=== PATIENT | male | born 1940 | race Caucasian/White ===

== ENCOUNTER 2017-02-13 06:20 | Day surgery (SDC) | payer OTHER ==
[~2017-02-13] VITALS: Ht 180.3 cm; Wt 98.1 kg
[2017-02-13] MEDS ORDERED: IOHEXOL 350 MG/ML 100 ML BTL (for Cath Lab) OTHER ONE (06:21)
[2017-02-13] MEDS ORDERED: IOHEXOL 350 MG/ML 50 ML BTL (for Cath Lab) OTHER ONE (06:21)
[2017-02-13] MEDS ORDERED: NS 1000P @30 MLS/HR (KVO) IV SCH (07:00)
[2017-02-13] MEDS ORDERED: KETOC2%T TOPICAL (07:24)
[2017-02-13] MEDS ORDERED: HYDR200T3 PO (07:24)
[2017-02-13] MEDS ORDERED: TAMS0.4C4 PO (07:24)
[2017-02-13] MEDS ORDERED: BENA5TAB PO (07:24)
[2017-02-13] MEDS ORDERED: ASPI81TA23 PO (07:24)
[2017-02-13] MEDS ORDERED: MULT-65 PO (07:24)
[2017-02-13] MEDS ORDERED: OMEP20TA93 PO (07:24)
[2017-02-13 07:27] VITALS: BP 107/72; PULSE 87; RESP 16; TEMP 98.1; O2SAT 96
[2017-02-13 07:29] LABS: AUTOMATED NEUTROPHIL # 2.3 TH/MM3 (1.8-7.7); BASOPHIL % 0.4 % (0.0-2.0); EOSINOPHIL # 0.1 TH/MM3 (0-0.4); EOSINOPHIL % 1.4 % (0.0-4.0); HEMATOCRIT 39.9 % (39.0-51.0); LYMPH % 31.8 % (9.0-44.0); LYMPHOCYTE # 1.4 TH/MM3 (1.0-4.8); MEAN CELL VOLUME 99.7 FL (80.0-100.0); MEAN CORPUSCULAR HEMOGLOBIN 35.5 PG (27.0-34.0); MEAN CORPUSCULAR HGB CONC 35.6 % (32.0-36.0); MONO % 13.6 % (0.0-8.0); NEUT % 52.8 % (16.0-70.0); PLATELET COUNT 89 TH/MM3 (150-450); RED BLOOD COUNT 4.01 MIL/MM3 (4.50-5.90); RED CELL DISTRIBUTION WIDTH 12.7 % (11.6-17.2); WHITE BLOOD COUNT 4.4 TH/MM3 (4.0-11.0)
[2017-02-13 07:36] LABS: APTT (PATIENT) 28.9 SEC (24.3-30.1); INTERNATIONAL NORMALIZED RATIO 1.1 RATIO; PROTHROMBIN TIME - PATIENT 11.9 SEC (9.8-11.6)
[2017-02-13 07:40] LABS: HEMO FLAGS AUTO DIFF
[2017-02-13 07:42] LABS: BICARBONATE 24.6 MEQ/L (21.0-32.0)
[2017-02-13 08:09] LABS: PLATELET ESTIMATE SMEAR LOW (NORMAL); PLATELET MORPHOLOGY NORMAL (NORMAL); SCAN/DIFF FINAL DIFF MANUAL
[2017-02-13] MEDS ORDERED: HEPARIN-NS/PF INJ 1,000 ML ONE ×2 (08:29)
[2017-02-13] MEDS ORDERED: VERAPAMIL HCL 5 MG/2 ML VIAL ONE (08:38)
[2017-02-13] MEDS ORDERED: HEPARIN SODIUM - IV 10,000 UNITS/10 ML VIAL ONE (08:39)
[2017-02-13] MEDS ORDERED: MIDAZOLAM HCL 2 MG/2 ML VIAL ONE (08:46)
[2017-02-13 08:56] LABS: BLOOD, URINE TRACE (NEG); COMMENT (UR) CATH-CULT NOT IND; CULTURE IF INDICATED CATH CULTURE NOT IND; GLUCOSE,URINE NEG (NEG); KETONE, URINE NEG (NEG); MUCUS URINE FEW /lpf (OCC); NITRITE,URINE NEG (NEG); PH, URINE 5.5 (5.0-8.5); SQUAMOUS EPITHELIAL CELL URINE <1 /hpf (0-5); URINE COLOR YELLOW (YELLW/STRAW)
[2017-02-13] MEDS ORDERED: HEPARIN-NS/PF INJ 500 ML ONE (10:08)
--- NOTE | 2017-02-13 10:28 | CATHPROC ---
Power Fingerprinting HIS Report Study Information Study Number Admission Scheduled Start Study Start [id number] Feb 13 2017 6:20AM 02/13/2017 Feb 13 2017 8:24AM [place] Service Cardiac Catheterization Admit Source Facility Department Other [facility] - General Magistrate Physician and Clinical Staff Initial Arya Abdi Foreign Language Instructor Spike Remy RN Recorder Melissa Parker,RT(R) Scrub Golden Willett RCIS(BS) Procedures Performed Procedure Location (Site) Vessel Name Coronary Angiograms LCA Left Coronary Coronary Angiograms RCA Right Coronary L Heart Cath Wire insertion Brach. Vein (right) Brachial Vein Wire insertion Radial (right) Radial Art. Equipment Time Tracer Lathe Set Up Operator Description Size Mfg Part Number Used/Scraped [id number] 09:03 HOBSON PASCUAL SWAN CAR CATHETER FR 7 Used *[id number] TRANSDUCER, TRUWAVE [id number] 09:03 HOBSON PASCUAL * Used W/STOCKCOCK *[id number] TRANSDUCER, TRUWAVE [id number] 09:03 HOBSON PASCUAL * Used W/STOCKCOCK *[id number] WIRE, GUIDE AMPLATZ STIFF [id number] 10:02 COOK/PACER 3MMJ Used 180CM *[id number] 534-576T *[id number] 534-545T *[id number] 534-548T *[id number] 534-518T *[id number] 534-521T *[id number] 09:03 [employer] INDUSTRIES PACK, CCL CUSTOM * Used *[id number] BAND, RADIAL COMPRESSION TR [id number] 10:13 [employer] MEDICAL 29CM Used LARGE 29 *[id number] 09:03 [employer] MEDICAL SHEATH, FR5.5 PRELUDE 11CM FR 5 [id number] Used [id number] 09:03 [employer]-Bound WIRE, 3MMJ .035 180CM 180CM Used *[id number] 09:03 NAMIC MANIFOLD, 2 PORT * Used *[id number] 09:03 NAMIC MANIFOLD, 4 PORT * Used *[id number] 09:03 NYCOMED OMNIPAQUE, 350 MG, 150ML 150ML [id number] Used 10:18 [employer]COMED OMNIPAQUE, 350 MG, 150ML 150ML [id number] Used [id number] 09:03 [employer] MEDICAL BLANKET,WARM AIR CCL * Used *[id number] SHEATH, FR6 TRANSRADIAL RM*[id number] 09:04 TERUM[employer] MEDICAL FR 6 Used SLENDER 10CM *[id number] SHEATH, FR6 TRANSRADIAL RM*[id number] 09:04 [employer] MEDICAL FR 6 Used SLENDER 10CM *[id number] 09:03 [employer]UM[employer] MEDICAL SHEATH, FR7 TERUMO (10CM) FR 7 Used *[id number] Equipment Model, Serial, Lot Number and Expiration Data Description Model Number Serial Number Lot Number Expiration Date WIRE, GUIDE AMPLATZ STIFF [id number] 11-30-2021 180CM History: Current Medications Medication Dosage/Unit Route Frequency Last Date/Time Taken ASA MVI Prilosec History: Allergies Allergy Reaction No Known Allergies History: Risk Factors Family History of Hypertension Dyslipidemia Previous [place] Previous Heart Failure Premature CAD Yes No No No No Prior Valve Prior PCI Prior CABG Surgery No No No Cerebrovascular Peripheral Artery Chronic Lung On Dialysis Diabetes Disease Disease Disease No No No No No History: Symptoms/Diagnosis Selection Items SOB History: Stress Tests Stress or Imaging Studies Performed No History: Other Disease Selection Items HTN History: Other Current Smoker Method Years Used Yes Cigarettes 10 Labs Hgb (g/dl) Hct (%) RBC (MIL/MM3) WBC (l/cumm) Platelets (thousands) 11.60-17.00 35.00-51.00 4.00-5.90 4.00-11.00 150.00-450.00 14.2 39.9 4 4.4 89 Glucose (mg/dl) BUN (mg/dl) Creatinine (mg/dl) BUN:Creatinine (1:x) 74.00-106.00 7.00-18.00 0.50-1.30 10.00-20.00 102 10 0.7 14.3 Na (meq/l) K (meq/l) Cl (meq/l) CO2 (mmol/L) Ca (mg/dl) 136.00-145.00 3.50-5.10 98.00-107.00 21.00-32.00 8.50-10.10 138 4 105 24.6 8 PT (sec) PTT (sec) INR (PTT:PT) 9.80-11.60 24.30-30.10 0.90-1.10 11.9 28.9 1.1 CPK-MB (ng/ML) 0.50-3.60 Not Drawn Medication Medication Total Dose (Bolus/Oral) Medication Total Dosage/Unit 1% XYLOCAINE 40 mL FENTANYL 25 mcg RADIAL COCKTAIL 5 mL (Bolus) Medications (Bolus/Oral) Medication Time Given Dosage/Unit Administered By Reason 1% XYLOCAINE 02/13/2017 8:59:10 AM 20 mL Arya Le 20 mL 1% XYLOCAINE given in lab by Arya Le in Right Radial via Subcutaneous. FENTANYL 02/13/2017 9:00:20 AM 25 mcg Spike Remy 25 mcg FENTANYL given in lab by Spike Remy RN via Peripheral IV. Ntg 200mcg Verapamil 2.5mg Heparin RADIAL COCKTAIL 02/13/2017 9:04:31 AM 5 mL (Bolus) Arya Le 3000U 5 mL (Bolus) RADIAL COCKTAIL given in lab by Arya Le in Right Radial via Radial. Using [S olution Name]. Reason: Ntg 200mcg Verapamil 2.5mg Heparin 3000U. 3900 units heparin 1% XYLOCAINE 02/13/2017 9:06:25 AM 20 mL Arya Le 20 mL 1% XYLOCAINE given in lab by Arya Le in Right Antecubital via Subcutaneous. Medication (Drip) Medication Time Given Dosage/Unit Concentration/Unit Diluent (ml) Solution IV Bolus 02/13/2017 9:09:08 AM 250 mL (Bolus) NaCl .9 250 mL (Bolus) IV Bolus given in lab by Spike Remy RN via Peripheral IV. Using NaCl .9. IV Solutions 02/13/2017 8:24:09 AM 0 mL (IV) 500 NaCl .9 Patient arrived on IV Solutions in Left Antecubital via Peripheral IV. Pump/Drip Flow = 20 ml/hr jennifer g NaCl .9. Ordered by Arya Le. Initial Case Assessment Cardiovascular HR Rhythm NIBP Chest Pain 77 reg 115/72 0 Edema Present Skin color Skin None Normal Warm Dry Circulatory - Right Pulses Dorsalis Pedis Femoral Radial 3 3 2 Scale (0,1,2,3,4,d) Circulatory - Left Pulses Dorsalis Pedis Femoral Radial 3 3 Scale (0,1,2,3,4,d) Circulatory - Lower Extremities Color Lower Right Color Lower Left Normal Normal Neurological State Oriented to time-place- Alert Moves all extremities person Respiration - General Respiration Rate SpO2 (%) (B/min) 16 95 Chronological Log Time Study Chronological Log 8:23:35 Patient arrived via Bed. 8:23:35 Patient Name, D.O.B, / Armband Verified By R.N. 8:23:36 Consent signed by the physician and the patient and verified by the General Magistrate staff. 8:23:37 Pre-op and post- op instructions given; patient acknowledges understanding of instructions. 8:23:38 Verbal Stimulation=2 Physical Stimulation=2 Airway=2 Respiration=2 TOTAL=8. (0=absent, 1=li mited, 2=present) 8:23:48 Allens test performed on the right radial and ulnar artery. 8:23:54 Patient has been NPO for More than 6Hrs. 8:23:55 Skin Breakdown-psoriasis patches on rt elbow and bilateral knees 8:24:04 Patient Warmer Placed on the Table. 8:24:08 A # 20 IV was noted in the Antecubital (left). Grade = 0 Patient arrived on IV Solutions in Left Antecubital via Peripheral IV. Pump/Drip Flow = 20 ml/h r using NaCl .9. Ordered 8:24:09 by Arya Le 8:24:10 History and physical on the chart or being dictated. Assessment: Initial Case, HR=77 BPM, Rhythm=reg, SDZE=330/72 mmhg, Chest Pain=0, Edema=None, Col or=Normal, Skin = Warm, Dry Right Pulses: Leobardo Ped=3, Femoral=3, Radial=2 Left Pulses: Leobardo Ped=3, Femoral=3 8:24:10 Lower Right Extremities: Color=Normal Lower Left Extremities: Color=Normal Neurological: State=Alert, Ox3, VELEZ Respiration: Resp=16 B/min, SpO2=95 % 8:24:50 MD arrived. Vitals capture started with the following parameters, Patient=Adult, Interval=5 min, Initial Pre qzdjr=154 mmHg, 8:32:51 Deflation Rate=5 mmHg, Cuff placed on Left Arm 8:33:34 HR=78 bpm, KMQM=594/69 mmhg, SpO2=95 %, Resp=15 B/min, Pain=0, Desiree=10, Rivera=3 8:36:57 Reference ECG taken 8:38:29 HR=76 bpm, WEIV=759/72 mmhg, SpO2=96.0 %, Resp=8 B/min, Pain=0, Desiree=10, Rivera=2 8:43:30 HR=79 bpm, OORD=533/76 mmhg, SpO2=95 %, Resp=15 B/min, Pain=0, Desiree=10, Rivera=2 8:48:29 HR=83 bpm, SXCJ=774/78 mmhg, SpO2=95.0 %, Resp=15 B/min, Pain=0, Desiree=10, Rivera=2 8:52:45 Pressure channel 1 zeroed. 8:53:34 HR=77 bpm, SGFY=141/74 mmhg, SpO2=96.0 %, Resp=15 B/min, Pain=0, Desiree=10, Rivera=2 Time Out. Correct patient, correct procedure, correct physician, power injector not loaded with contrast with surgical 8:57:48 team present. Time Out Concurred by MD and individual staff in procedure. Time Out #2 - Consents verified, patient in correct position, all results are labled and display ed, safety precautions 8:58:00 taken. Time Out concurred by MD, individual staff and DIRECTOR PERSONAL in procedure. 8:58:08 Presedation re-assessment performed by General Magistrate RN. 8:58:11 Contrast Scanned 8:58:15 Case Start 8:58:29 HR=79 bpm, DXUW=933/76 mmhg, SpO2=96.0 %, Resp=13 B/min, Pain=0, Desiree=10, Rivera=2 8:59:04 Verbal Stimulation=2 Physical Stimulation=2 Airway=2 Respiration=2 TOTAL=8. (0=absent, 1=quiroz ited, 2=present) 8:59:10 20 mL 1% XYLOCAINE given in lab by Arya Le in Right Radial via Subcutaneous. 9:00:20 25 mcg FENTANYL given in lab by Spike Remy, RN via Peripheral IV. Access site was right Radial Artery with ultrasound device 9:01:54 9:02:17 A wire was inserted via Radial (right). A SHEATH, FR6 TRANSRADIAL SLENDER 10CM FR 6 was advanced into the Radial (right) using the Zenobia grijalva 9:02:33 technique. 9:03:30 HR=84 bpm, JDKQ=019/79 mmhg, SpO2=95.0 %, Resp=18 B/min, Pain=0, Desiree=10, Rivera=2 5 mL (Bolus) RADIAL COCKTAIL given in lab by Arya Le in Right Radial via Radial. Yo felix [Solution Name]. 9:04:31 Reason: Ntg 200mcg Verapamil 2.5mg Heparin 3000U. 3900 units heparin 9:06:25 20 mL 1% XYLOCAINE given in lab by Arya Le in Right Antecubital via Subcutaneous . 9:08:32 HR=79 bpm, NIBP=89/53 mmhg, SpO2=91 %, Resp=11 B/min, Pain=0, Desiree=10, Rivera=2 9:09:08 250 mL (Bolus) IV Bolus given in lab by Spike Remy, RN via Peripheral IV. Using NaCl .9. 9:12:32 NIBP STAT measurement started. 9:13:08 HR=71 bpm, NIBP=86/56 mmhg, SpO2=91 %, Resp=15 B/min, Pain=0, Desiree=10, Rivera=2 9:17:02 NIBP STAT measurement started. 9:17:28 Access site was Right Brachial Vein. 9:17:34 HR=78 bpm, TRDW=830/68 mmhg, SpO2=91.0 %, Resp=17 B/min, Pain=0, Desiree=10, Rviera=2 9:17:43 A wire was inserted via Brach. Vein (right). A SHEATH, FR6 TRANSRADIAL SLENDER 10CM FR 6 was advanced into the Brach. Vein (right) using the Percutaneous 9:17:57 technique. 9:18:37 A SWAN CAR CATHETER FR 7 was inserted via Brach. Vein (right) 9:18:38 HR=76 bpm, JUEO=487/63 mmhg, SpO2=92 %, Resp=17 B/min, Pain=0, Desiree=10, Rivera=2 Recorded Pressure: PCW, HR=79, Condition=Condition 1 9:21:47 (Pulmonary Capillary Wedge) PCW 19/17/14 9:23:26 Saturation: Site=Ao (Aorta) , O2=94.3 %, Hgb=14.2 gm/dl, Condition=Condition 1. Used in calc ulation. 9:23:33 HR=77 bpm, NIBP=99/66 mmhg, SpO2=93.0 %, Resp=8 B/min, Desiree=10 9:25:12 Saturation: Site=PA (Pulmonary Artery) , O2=76.7 %, Hgb=14.2 gm/dl, Condition=Condition 1. U sed in calculation. Recorded Pressure: MPA, HR=78, Condition=Condition 1 9:26:36 (Main Pulmonary Artery) MPA Recorded Pressure: RV, HR=78, Condition=Condition 1 9:27:15 (Right Ventricle) RV Recorded Pressure: RA, HR=71, Condition=Condition 1 9:27:45 (Right Atrium) RA 9:28:21 [place] Car Catheter Removed 9:28:32 HR=78 bpm, BKFY=438/69 mmhg, SpO2=97.0 %, Resp=8 B/min, Pain=0, Desiree=10, Rivera=2 A JR 4.0 INFINITI CATHETER FR 5 was advanced over a wire. OMNIPAQUE, 350 MG, 150ML 150ML was us ed for 9:29:08 injections. Recorded Pressure: Ao, HR=81, Condition=Condition 1 9:31:30 (Aorta) Ao 93/57/73 9:33:31 HR=80 bpm, UDOE=481/71 mmhg, SpO2=97.0 %, Resp=22 B/min, Pain=0, Desiree=10, Rivera=2 After removing the current catheter a JL 3.5 INFINITI CATHETER FR 5 was advanced over a WIRE, 3 MMJ .035 180CM 9:35:46 180CM. 9:38:36 HR=79 bpm, NIBP=97/58 mmhg, SpO2=95 %, Resp=13 B/min, Pain=0, Desiree=10, Rivera=2 9:39:19 The LCA was injected and visualized at various angles. OMNIPAQUE, 350 MG, 150ML 150ML used. After removing the current catheter a 3DRC INFINITI CATHETER FR 5 was advanced over a WIRE, 3MM J .035 180CM 9:43:28 180CM. 9:43:33 GP=828 bpm, GQCP=321/61 mmhg, SpO2=95 %, Resp=8 B/min, Pain=0, Desiree=10, Rivera=2 9:48:32 HR=85 bpm, ZIKR=363/73 mmhg, SpO2=95 %, Resp=17 B/min, Pain=0, Desiree=10, Rivera=2 9:48:48 A WIRE, 3MMJ .035 180CM 180CM was inserted via Radial (right). After removing the current catheter a AR MOD INFINITI CATHETER FR 5 was advanced over a WIRE, 3 MMJ .035 180CM 9:52:48 180CM. 9:53:35 HR=80 bpm, IHGX=524/65 mmhg, SpO2=95.0 %, Resp=15 B/min, Pain=0, Desiree=10, Rivera=2 9:57:56 The RCA was injected and visualized at various angles. OMNIPAQUE, 350 MG, 150ML 150ML used. 9:58:36 HR=82 bpm, QXXA=529/73 mmhg, SpO2=96.0 %, Resp=16 B/min, Pain=0, Desiree=10, Rivera=2 After removing the current catheter a AL 1 INFINITI CATHETER FR 5 was advanced over a WIRE, 3MM J .035 180CM 9:59:40 180CM. 10:03:35 HR=81 bpm, GKBX=705/75 mmhg, SpO2=97.0 %, Resp=20 B/min, Pain=0, Desiree=10, Rivera=2 10:05:11 The RCA was injected and visualized at various angles. OMNIPAQUE, 350 MG, 150ML 150ML used . 10:08:36 HR=83 bpm, ZPMN=929/66 mmhg, SpO2=97.0 %, Resp=8 B/min, Pain=0, Desiree=10, Rivera=2 10:10:26 Catheter was removed 10:10:32 Case End Radial Compression Device Used. 97 mLs of air placed in BAND, RADIAL COMPRESSION TR LARGE 29 29 CM. Affected 10:12:36 hand 18 % O2 saturation. 10:13:35 HR=84 bpm, BAMC=126/75 mmhg, SpO2=97.0 %, Resp=18 B/min, Pain=0, Desiree=10, Rivera=2 10:15:10 ACT (Normal Range 90-180) = 188 10:18:07 Sterile dressing applied to site 10:18:08 No case complications noted. 10:18:11 Cine recording checked. 10:18:13 Bedside Report will be given. 10:18:16 Contrast Scanned 10:18:33 A Left Heart Cath was performed. 10:18:36 HR=83 bpm, QTZK=162/76 mmhg, SpO2=97.0 %, Resp=16 B/min, Pain=0, Desiree=10, Rivera=2 10:23:39 HR=97 bpm, MLZG=511/67 mmhg, SpO2=96.0 %, Resp=18 B/min, Pain=0, Desiree=10, Rivera=2 End Study - Contrast Media Used In Study Contrast Total Opened (mL) Total Used (mL) Total Wasted (mL) Omnipaque 110 110 0 End Study - Maximum Contrast Load Max Contrast Load (mL) 700.6 End Study - Radiation Exposure Fluoro Time (minutes) 18.9 End Study - Sheaths Sheaths Pulled By Sheath Hold Time (min) Golden Willett End Study - Patient Disposition Complications Transferred To Interventional Outcome No Outpatient Bed No attempt made
[2017-02-13] MEDS ORDERED: MISC INFORMATION XX ONE (10:30)
--- NOTE | 2017-02-13 11:56 | RADRPT ---
EXAM DATE/TIME: 02/13/2017 11:16 [facility] COMPARISON: No previous studies available for comparison. INDICATIONS : Preop cardiac surgery. MEDICAL HISTORY : Hypertension. Gastroesophageal reflux disease. Cardiac valve disease. SURGICAL HISTORY : Cardiac cath. ENCOUNTER: Initial ACUITY: 1 day PAIN SCORE: 0/10 LOCATION: Bilateral neck PEAK SYSTOLIC VELOCITIES (cm/sec): ICA/CCA RATIO: Right: 1.0 Left: 0.9 ICA: Right: 93 Left: 98 CCA: Right: 90 Left: 104 ECA: Right: 97 Left: 128 VERTEBRAL: Right: 29 antegrade Left: 80 antegrade Elevated flow velocities and ICA/CCA ratios have been found to correlate with increased degrees of vessel stenosis, calculated as percentage of diameter relative to a normal segment of distal ICA/CCA FINDINGS: RIGHT CAROTID: Mild calcified plaque in the carotid wall extending to the origin of the ICA. No significant stenosis is visualized. The waveforms are within normal limits. LEFT CAROTID: Mild calcified plaque in the carotid wall extending to the origin of the ICA. No significant stenosis is visualized. The waveforms are within normal limits. VERTEBRAL ARTERIES: Antegrade flow is seen in both vertebral arteries. MISCELLANEOUS: None. CONCLUSION: 1. Mild bilateral carotid bulb calcified plaque extending to the internal carotid artery origins with out significant flow-limiting stenosis. 2. Antegrade vertebral artery flow bilaterally. Mich Bai MD on February 13, 2017 at 11:52 Board Certified Radiologist. This report was verified electronically.
--- NOTE | 2017-02-13 11:57 | RADRPT ---
EXAM DATE/TIME: 02/13/2017 10:59 [facility] COMPARISON: No previous studies available for comparison. INDICATIONS : Pre-Op cardiac surgery. MEDICAL HISTORY : Hypertension. Gastroesophageal reflux disease. Cardiac valve disease. SURGICAL HISTORY : Cardiac catheterization. ENCOUNTER: Initial ACUITY: 1 day PAIN SCORE: 0/10 LOCATION: Bilateral leg. GREATER SAPHENOUS VEIN THIGH: PROXIMAL: Right 5 mm Left 6 mm MID: Right 3 mm Left 4 mm DISTAL: Right 3 mm Left 4 mm CALF: PROXIMAL: Right 3 mm Left 3 mm MID: Right 2 mm Left 2 mm DISTAL: Right 2 mm Left 3 mm FINDINGS: The venous system of the lower extremities are patent by color Doppler imaging. Measurements of the leg veins (in mm) are listed above. CONCLUSION: 1. Patent bilateral saphenous veins. 2. Lower extremity venous mapping, as above. Mich Bai MD on February 13, 2017 at 11:54 Board Certified Radiologist. This report was verified electronically.
--- NOTE | 2017-02-13 11:59 | RADRPT ---
EXAM DATE/TIME: 02/13/2017 10:51 [facility] COMPARISON: No previous studies available for comparison. INDICATIONS : Pre-Op cardiac surgery. MEDICAL HISTORY : Hypertension. Gastroesophageal reflux disease. Cardiac valve disease. SURGICAL HISTORY : Cardiac catheterization. ENCOUNTER: Initial ACUITY: 1 day PAIN SCORE: 0/10 LOCATION: Bilateral leg. TECHNIQUE: Venous ultrasound of the left and right leg was performed from the inguinal ligament to the proximal calf. Real-time, color Doppler and spectral tracing, compression and augmentation techniques were us ed. FINDINGS: RIGHT LEG: There is normal compressibility of the deep venous system from the inguinal region to the proximal ca lf. No echogenic clot is seen in the lumen of the common femoral, femoral, popliteal, and posterior tibial veins. There is a normal response of the venous system to proximal and distal augmentation an d respiration. LEFT LEG: There is normal compressibility of the deep venous system from the inguinal region to the proximal ca lf. No echogenic clot is seen in the lumen of the common femoral, femoral, popliteal, and posterior tibial veins. There is a normal response of the venous system to proximal and distal augmentation an d respiration. CONCLUSION: Normal examination. Mack Block MD on February 13, 2017 at 11:56 Board Certified Radiologist. This report was verified electronically.
--- NOTE | 2017-02-13 15:15 | EKG ---
Date Performed: 02/13/2017 Time Performed: 07:24:44 PTAGE: 77 years EKG: Sinus rhythm with PVC(s) with PAC(s). Leftward axis Inferior T wave changes are nonspecific Borderline ECG NO PREVIOUS TRACING DOCTOR: Tammi Phoenix Interpretating Date/Time 02/13/2017 15:12:46
[2017-02-13 15:51] LABS: HEMOGLOBIN A1b 1.3 %; HEMOGLOBIN Ao 86.5 %; HEMOGLOBIN P3 3.5 %
--- NOTE | 2017-02-13 16:00 | RADRPT ---
EXAM DATE/TIME: 02/13/2017 15:40 [facility] COMPARISON: No previous studies available for comparison. INDICATIONS : Evaluate for pneumonia, pneumothorax, or communicable disease. Pre op CABG. MEDICAL HISTORY : None. SURGICAL HISTORY : None. ENCOUNTER: Initial ACUITY: 1 day PAIN SCORE: 0/10 LOCATION: Bilateral chest FINDINGS: There are mild chronic appearing interstitial changes. The heart is at the upper limits of normal in size. The mediastinal contours are within normal limits. There degenerative changes in the spine. CONCLUSION: 1. Chronic appearing interstitial changes. No acute abnormality. Brian Parsons MD on February 13, 2017 at 15:55 Board Certified Radiologist. This report was verified electronically.
--- NOTE | 2017-02-13 16:18 | RADRPT ---
EXAM DATE/TIME: 02/13/2017 15:50 [facility] COMPARISON: No previous studies available for comparison. INDICATIONS : Preop for aortic valve replacement. RADIATION DOSE: 7.49 CTDIvol (mGy) MEDICAL HISTORY : Cardiovascular disease. Hypertension. GERD. SURGICAL HISTORY : None. ENCOUNTER: Initial ACUITY: 1 day PAIN SCALE: 1/10 LOCATION: Bilateral chest TECHNIQUE: Volumetric scanning of the chest was performed. Using automated exposure control and adjustment of t he mA and/or kV according to patient size, radiation dose was kept as low as reasonably achievable to obtain optimal diagnostic quality images. DICOM format image data is available electronically for r eview and comparison. Follow-up recommendations for detected pulmonary nodules are based at a minimum on nodule size and pa tient risk factors according to Fleischner Society Guidelines. FINDINGS: LUNGS: There is no consolidation or pneumothorax. No concerning pulmonary nodule is visualized. PLEURAE: There is no pleural thickening or pleural effusion. MEDIASTINUM: Extensive aortic and mitral valve calcifications. Moderate bilateral cornea artery calcifications. He art is normal in size without significant pericardial effusion. The aortic root and ascending thoraci c aorta are mildly aneurysmal measuring up to 4 cm in axial dimension. 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 Aortic arch is normal in caliber. Descending thoracic aorta is normal in caliber with minimal scattered calcified plaque. AXILLAE: Within normal limits. No lymphadenopathy. MUSCULOSKELETAL: Within normal limits for patient age. MISCELLANEOUS: Visualized portions of the upper abdomen demonstrate a nodular hepatic contour which may reflect cirr hosis. Otherwise, no significant abnormality. CONCLUSION: 1. Extensive aortic and mitral valve calcifications with mildly aneurysmal aortic root and ascending thoracic aorta measuring up to 4 cm in axial dimension. 2. Moderate coronary artery calcifications. 3. No significant focal pleural or parenchymal abnormality. 4. Visualized portions of the upper abdomen demonstrate a nodular cirrhotic appearing liver. Clinical correlation is recommended. Mich Bai MD on February 13, 2017 at 16:10 Board Certified Radiologist. This report was verified electronically.
--- NOTE | 2017-02-13 17:38 | PD.CAR.PN ---
CVT Progress Note Subjective/Hospital Course: sts data discussed with pt RISK SCORES About the STS Risk Calculator Procedure: AV Replacement + CAB Risk of Mortality: 3.262% Morbidity or Mortality: 20.764% Long Length of Stay: 11.317% Short Length of Stay: 27.231% Permanent Stroke: 1.54% Prolonged Ventilation: 13.865% DSW Infection: 0.563% Renal Failure: 5.773% Reoperation: 9.878% Objective: Vital Signs Date Time Temp Pulse Resp B/P (MAP) Pulse Ox O2 Delivery O2 Flow Rate FiO2 02/13/17 10:35 97 Room Air 02/13/17 07:27 98.1 87 16 107/72 (84) 96 Labs: Laboratory Tests Test 02/13/17 07:00 02/13/17 07:05 Urine Color YELLOW (YELLW/STRAW) Urine Turbidity CLEAR (CLEAR) Urine pH 5.5 (5.0-8.5) Urine Specific [place] 1.015 (1.002-1.035) Urine Protein TRACE mg/dL (NEG-TRACE) Urine Glucose (UA) NEG mg/dL (NEG) Urine Ketones NEG mg/dL (NEG) Urine Occult Blood TRACE (NEG) Urine Nitrite NEG (NEG) Urine Bilirubin NEG (NEG) Urine Urobilinogen LESS THAN 2.0 MG/DL (LESS Urine Leukocyte Esterase NEG (NEG) Urine RBC 2 /hpf (0-3) Urine WBC 1 /hpf (0-5) Urine Squamous Epithelial Cells <1 /hpf (0-5) Urine Mucus FEW /lpf (OCC) Microscopic Urinalysis Comment CATH-CULT NOT IND Nasal Screen MRSA (PCR) MRSA NOT DETECTED (NOT White Blood Count 4.4 TH/MM3 (4.0-11.0) Red Blood Count 4.01 MIL/MM3 (4.50-5.90) Hemoglobin 14.2 GM/DL (13.0-17.0) Hematocrit 39.9 % (39.0-51.0) Mean Corpuscular Volume 99.7 FL (80.0-100.0) Mean Corpuscular Hemoglobin 35.5 PG (27.0-34.0) Mean Corpuscular Hemoglobin Concent 35.6 % (32.0-36.0) Red Cell Distribution Width 12.7 % (11.6-17.2) Platelet Count 89 TH/MM3 (150-450) Mean Platelet Volume 7.3 FL (7.0-11.0) Neutrophils (%) (Auto) 52.8 % (16.0-70.0) Lymphocytes (%) (Auto) 31.8 % (9.0-44.0) Monocytes (%) (Auto) 13.6 % (0.0-8.0) Eosinophils (%) (Auto) 1.4 % (0.0-4.0) Basophils (%) (Auto) 0.4 % (0.0-2.0) Neutrophils # (Auto) 2.3 TH/MM3 (1.8-7.7) Lymphocytes # (Auto) 1.4 TH/MM3 (1.0-4.8) Monocytes # (Auto) 0.6 TH/MM3 (0-0.9) Eosinophils # (Auto) 0.1 TH/MM3 (0-0.4) Basophils # (Auto) 0.0 TH/MM3 (0-0.2) CBC Comment AUTO DIFF Differential Comment FINAL DIFF MANUAL Platelet Estimate LOW (NORMAL) Platelet Morphology Comment NORMAL (NORMAL) Prothrombin Time 11.9 SEC (9.8-11.6) Prothromb Time International Ratio 1.1 RATIO Activated Partial Thromboplast Time 28.9 SEC (24.3-30.1) Blood Urea Nitrogen 10 MG/DL (7-18) Creatinine 0.78 MG/DL (0.60-1.30) Random Glucose 102 MG/DL (74-106) Calcium Level 8.0 MG/DL (8.5-10.1) Sodium Level 138 MEQ/L (136-145) Potassium Level 4.0 MEQ/L (3.5-5.1) Chloride Level 105 MEQ/L (98-107) Carbon Dioxide Level 24.6 MEQ/L (21.0-32.0) Anion Gap 8 MEQ/L (5-15) Estimat Glomerular Filtration Rate 97 ML/MIN (>89) Result Diagram: 02/13/1770402/13/17704 Brittany Mo Feb 13, 2017 17:38
--- NOTE | 2017-02-13 17:54 | MB ---
cc: AMA ALMODOVAR MD DATE OF CONSULTATION 02/13/17 1941. HISTORY OF PRESENT ILLNESS A 77-year-old male, patient of Dr. Pineda, also Dr. Le, Dr. Morris Alexandre who has been having some shortness of breath and fatigue for the last 4-5 months, has a history of aortic stenosis and has been followed on a regular basis by Dr. Pineda. He had a recent echocardiogram on January 09 which showed an ejection fraction of 60%, some grade 1 diastolic dysfunction. The left atrium was mildly dilated. The peak gradient for the aortic valve is 87 mmHg, mean gradient of 53, the valve consistent with severe aortic stenosis, mitral valve had some mild regurgitation and some mild tricuspid regurgitation. Right ventricular systolic pressures of 49 and also underwent heart catheterization today which showed 100% mid distal LAD and the RCA was 70% stenosed. He did right-sided heart cath which showed RA pressures of 8, PA pressure 28/14, wedge pressure 17. Cardiac output of 8, with an index of 3.7. We were consulted to evaluate for aortic valve replacement and coronary artery bypass grafting x2. PAST MEDICAL HISTORY 1. Aortic stenosis. 2. History of colon polyps 3. History of lupus and low platelets 4. Essential hypertension 5. Thrombocytopenia 6. Psoriasis 7. Psoriatic arthritis PAST SURGICAL HISTORY 1. Laparoscopic cholecystectomy. ALLERGIES No known allergies MEDICATIONS 1. Aspirin 81 mg. 2. Benazepril. 3. Hydroxychloroquine 200 mg daily 4. Omeprazole 5. Flomax 0.4 daily. FAMILY HISTORY Father from heart disease at 89. Mother from a stroke at 85. SOCIAL HISTORY The patient , two children. Retired from [employer]. He smokes a regular swish or sweet cigar and drinks two cocktails per night. REVIEW OF SYSTEMS GENERAL: No night sweats, fever, heat and cold intolerance. SKIN: No psoriasis, itching or hives. HEENT: No blurred vision, hearing loss. RESPIRATORY: Positive for shortness of breath with exertion for the past 4-5 months CARDIOVASCULAR: No chest pain. No paroxysmal nocturnal dyspnea. No orthopnea. GASTROINTESTINAL: No diarrhea, vomiting. GENITOURINARY: No burning, frequency, urgency AREA MECHANIC: No history of TIA, CVA, seizure disorder. ENDOCRINE: No diabetes, no hypothyroidism. PHYSICAL EXAMINATION VITAL SIGNS: Blood pressure 110/70, heart rate of 82, afebrile. Room air saturations 97%. GENERAL: Patient is awake, alert in no acute distress. HEENT: Normocephalic, atraumatic. Pupils equal and reactive. Oral mucosa pink, moist. NECK: Supple. No JVD. CARDIAC: Heart sounds S1-S2 slightly irregular. He has a great 3/6 systolic murmur best noted in the left sternal border. LUNGS: Clear to auscultation. No wheezes, rales or rhonchi. ABDOMEN: Soft, nontender. No masses or organomegaly. EXTREMITIES: No cyanosis, clubbing or edema. LABORATORY DATA Hemoglobin of 14, hematocrit 39, white cell count 4.4, platelet count of 89. Sodium 138, potassium 4.0, BUN of 10, creatinine 0.78, INR 1.1. Urinalysis unremarkable. MRSA nondetected. IMAGING STUDIES Carotid ultrasound - no significant flow limiting stenosis. The CT chest showed some extensive aortic, mitral valve calcification, mild aneurysmal aortic root and ascending thoracic aorta measuring 4 cm in axial dimension, some moderate coronary calcification. Chest x-ray with some chronic interstitial changes. IMPRESSION This is a very pleasant 77-year-old male with severe aortic stenosis two-vessel coronary disease. The cardiac zones have been reviewed by Dr. Ama Almodovar. PLAN for aortic valve replacement with tissue valve, coronary artery bypass grafting x2. Procedures, alternatives and risks have been discussed with the patient. He is agreeable to proceed. We will proceed on February 23. Dictated by JO-ANN Benson Ama SHAVER/ /5:06 PM /7:51 AM
--- NOTE | 2017-02-13 22:34 | MA ---
cc: ARYA CHRISTENSEN DO DATE: February 13, 2017 PROCEDURE Right heart catheterization, coronary angiogram, ultrasound-guided access, PREPROCEDURE DIAGNOSIS Severe aortic stenosis for possible AVR/TAVR. POSTPROCEDURE DIAGNOSIS Multivessel coronary artery disease, severe aortic stenosis. MEDICATIONS 1. Fentanyl 25 mcg. 2. Verapamil 2.5 mg. 3. Nitro 200 mcg. 4. Heparin 3900 units. CONTRAST 110 cc Fluoroscopy: 18.9 minutes Moderate sedation: 0-minutes ESTIMATED BLOOD LOSS 10 cc PROCEDURAL SUMMARY: Mack Desouza is a pleasant 77-year-old male who sees my partner Dr. Pineda in the office and was referred for cardiac catheterization due to severe aortic stenosis. Risks, benefits and alternatives were explained to him he consented as such. He was brought to lab and prepped in the usual sterile fashion. Right radial artery was accessed using a modified Seldinger technique with ultrasound guidance and placement of a 5/6 Gambian slender sheath. The right brachial vein was accessed using a modified Seldinger technique and ultrasound guidance and placement of a 5/6 Gambian slender sheath. Both of these were easily aspirated and flushed. A Laporte-Noam catheter was advanced to a wedge position and oxygen saturations and pressures were done in a standard fashion upon removal through the heart. Laporte-Noam catheter was removed. The JR-4 was advanced to the ascending aorta but unable to engage the right coronary artery. This was exchanged out for a JL-3.5 which was used for selective angiography of the left coronary artery system. JL-3.5 was exchanged for a 3D RC and then an AR mod and finally an AL-1 for selective angiography of the right coronary artery system. It was not felt prudent to cross the aortic valve at this time as he has a known mean gradient of 50 on echocardiogram. AL-1 was removed over a J-wire. A radial band was placed over the arteriotomy site for hemostasis. Venous sheath was sutured in place with a plan to remove once ACT values were appropriate and pressure held for hemostasis. The patient left the labor utilization superintendent cardiovascularly stable. FINDINGS Left main: Overall short vessel with no significant disease and adequate reflux. It bifurcates into an LAD and circumflex. LAD: Normal-size vessel with no significant disease throughout the proximal portion. The midportion of the LAD is subtotally occluded with minimal flow into the [id number] LAD but is overall a good size vessel. It gives off one large diagonal with no significant disease. Left circumflex: Normal size vessel with mild luminal irregularities throughout the midportion. It gives off one large obtuse marginal with no significant disease. RCA: Normal-size vessel which is overall dominant in nature. There is a 70% lesion in the proximal portion and no significant disease distally. HEMODYNAMIC RESULTS RA 9. RV 31/9. LVEDP 12. PA 28/14, mean PA 20. Wedge 17. Cardiac output 8. Cardiac index 3.7. IMPRESSION 1. Multivessel coronary artery disease. 2. Severe aortic stenosis by echocardiogram. RECOMMENDATIONS 1. Mr. Desouza was found to have aortic stenosis by echocardiogram and significant coronary artery disease with a subtotally occluded LAD as well as a significant lesion in his RCA. 2. Because of this he will be recommended CT surgery for possible AVR with CABG x2. 3. The case was discussed with Dr. Siegel who will see him in consultation. 4. As the patient is relatively asymptomatic, he will be discharged home with plans for elective procedure in the near future. Thank you for allowing me to see Mack Desouza. If there are any questions please do not hesitate to call. Arya Christensen DO SHAY/DELORIS /8:14 PM /9:37 PM
== END 2017-02-13 17:17 | disposition home or self-care (01) ==
LOC: HCAT 06:20 → HDIC 06:21 → HCAT 17:17
PROVIDERS: ATTEND Nuclear Medicine Nuclear Cardiology
DX: I35.0 Nonrheumatic aortic (valve) stenosis (principal); I25.10 Atherosclerotic heart disease of native coronary artery without angina pectoris; I10 Essential (primary) hypertension; I71.2 Thoracic aortic aneurysm, without rupture; R91.8 Other nonspecific abnormal finding of lung field; K21.9 Gastro-esophageal reflux disease without esophagitis; M32.9 Systemic lupus erythematosus, unspecified; Z79.82 Long term (current) use of aspirin; Z95.1 Presence of aortocoronary bypass graft; Z95.3 Presence of xenogenic heart valve; Z01.818 Encounter for other preprocedural examination
CPT/HCPCS: 71020; 71250; 80048; 81001; 82810; 83036; 85007; 85027; 85610; 85730; 86850; 86900; 86901; 87641; 93005; 93456; 93880; 93970; 93998; 94010; 99152; 99153; C1769; C1893; J1644; J2250; J3010; Q9967

== ENCOUNTER 2017-02-23 05:10 | Inpatient (IN) | payer OTHER, MEDICARE ==
[2017-02-23] VITALS (12 sets, daily range): BP systolic 90–131; BP diastolic 51–77; PULSE 75–116; RESP 12–18; TEMP 98–98.9; O2SAT 96–100
[~2017-02-23] VITALS: Ht 180.3 cm; Wt 108.5 kg
[~2017-02-23 05:10] MED LIST: ASPI81TA23 PO; BENA5TAB PO; HYDR200T3 PO; KETOC2%T TOPICAL; MULT-65 PO; OMEP20TA93 PO; TAMS0.4C4 PO
[2017-02-23] MEDS ORDERED: CEFAZOLIN 500 MG in NS IRR BTL 500 ML IRRIGATION SCH (05:45)
[2017-02-23] MEDS ORDERED: LACTATED RINGER'S 1000 ML IV PRN (05:45)
[2017-02-23] MEDS ORDERED: SODIUM CHLORIDE 0.9% FLUSH 10 ML FLUSH IV FLUSH PRN ×3 (05:45→13:30)
[2017-02-23] MEDS ORDERED: CHLORHEXIDINE GLUCONATE 4% SOLN 120 ML BTL TOPICAL SCH (05:45)
[2017-02-23] MEDS ORDERED: INSULIN REGULAR 100 UNITS in NS 100 ML IV PRN (05:45)
[2017-02-23] MEDS ORDERED: DEXTROSE 50% IN WATER 50 ML VIAL(D50) IV PUSH PRN ×2 (05:45→13:30)
[2017-02-23] MEDS ORDERED: POVIDONE IODINE 5% (ANTISEPSIS KIT) 4 APPLICATIONS EACH NARE PRN (05:45)
[2017-02-23] MEDS ORDERED: ceFAZolin 2 GM PREMIX 50 ML IV SCH (05:45)
[2017-02-23] MEDS ORDERED: CHLORHEXIDINE GLUCONATE 2 % 1 PACK (2 CLOTHS) TOPICAL PRN (05:45)
[2017-02-23] MEDS ORDERED: SODIUM CHLORID 0.9% 500 ML IV PRN (05:45)
[2017-02-23] MEDS ORDERED: INSULIN HUMAN REGULAR 1,000 UNITS/10 ML VIAL SQ PRN (05:45)
[2017-02-23] MEDS ORDERED: PAPAVERINE 60 MG-NITROGLYCERIN 100 MCG-DILTIAZEM 100 MG in NS 100 ML IRRIGATION SCH ×4 (05:45)
[2017-02-23] MEDS: METOPROLOL TARTRATE 25 MG TAB PO SCH ×2 (06:00→06:13)
[2017-02-23] MEDS ORDERED: ceFAZolin 2 GM PREMIX 50 ML ONE (06:16)
[2017-02-23] MEDS ORDERED: HEPARIN SODIUM - SQ 10,000 UNITS/ML VIAL ONE ×2 (06:16→07:15)
[2017-02-23] MEDS ORDERED: VANCOMYCIN HCL 1000 MG VIAL ONE (06:17)
[2017-02-23] MEDS ORDERED: CUSTODIOL HTK IRR SOLN 3,000 ML ONE (07:13)
[2017-02-23] MEDS ORDERED: POTASSIUM CHLORIDE 20 MEQ/10 ML VIAL ONE (07:13)
[2017-02-23] MEDS ORDERED: LIDOCAINE HCL 2% 100 MG/5 ML SYRINGE ONE (07:14)
[2017-02-23] MEDS ORDERED: SODIUM BICARBONATE 8.4% INJ 150 ML ONE (07:14)
[2017-02-23] MEDS ORDERED: CALCIUM CHLORIDE 10% SOLN 1 GRAM/10 ML SYR ONE (07:14)
[2017-02-23] MEDS ORDERED: MANNITOL INJ 100 ML ONE (07:15)
[2017-02-23] MEDS ORDERED: HEPARIN SODIUM - IV 10,000 UNITS/10 ML VIAL ONE (07:16)
[2017-02-23] MEDS ORDERED: ALBUMIN 25% INJ 50 ML IV ONE (07:16)
[2017-02-23] MEDS ORDERED: DEXMEDETOMIDINE HCL 200 MCG/2 ML VIAL ONE (11:10)
[2017-02-23] MEDS ORDERED: ceFAZolin INJ 1,000 MG VIAL ONE (11:12)
[2017-02-23] MEDS ORDERED: LACTATED RINGER'S 1000 ML INJ 500 ML IV PRN (13:29)
[2017-02-23] MEDS ORDERED: DOBUTamine PREMIX DRIP 250 ML IV SCH (13:29)
[2017-02-23] MEDS ORDERED: ACETAMINOPHEN 650 MG SUPP RECTAL PRN (13:30)
[2017-02-23] MEDS ORDERED: ACETAMINOPHEN 325 MG TAB PO PRN (13:30)
[2017-02-23] MEDS ORDERED: ONDANSETRON HCL 4 MG/2 ML VIAL IV PUSH PRN (13:30)
[2017-02-23] MEDS ORDERED: MAGNESIUM SULFATE INJ 2 GM in SODIUM CHLORIDE 0.9% INJ 100 ML IV PRN ×4 (13:30)
[2017-02-23] MEDS ORDERED: POTASSIUM CHLOR 20 MEQ PREMIX 100 ML IV PRN ×3 (13:30)
[2017-02-23] MEDS ORDERED: MEPERIDINE HCL 25 MG/ML VIAL IV PUSH PRN (13:30)
[2017-02-23] MEDS ORDERED: SODIUM BICARBONATE 8.4% SOLN 50 MEQ/50 ML VIAL IV PUSH PRN (13:30)
[2017-02-23] MEDS ORDERED: KETOROLAC TROMETHAMINE 30 MG/ML (IVP) VIAL IV PUSH PRN (13:30)
[2017-02-23] MEDS ORDERED: PHENYLEPHRINE INJ 40 MG in DEXTROSE 5% IN WATE 500 ML INJ 496 ML IV PRN ×2 (13:30)
[2017-02-23] MEDS ORDERED: DOPamine INJ PREMIX 500 ML IV PRN (13:30)
[2017-02-23] MEDS ORDERED: RESP: RACEPINEPHRINE 2.25% 0.5 ML NEB NEB PRN (13:30)
[2017-02-23] MEDS ORDERED: CALCIUM CHLORIDE 10% 1 GRAM/10 ML VIAL IV PUSH PRN (13:30)
[2017-02-23] MEDS ORDERED: DEXMEDETOMIDINE INJ 200 MCG in SODIUM CHLORIDE 0.9% INJ 50 ML IV PRN (13:30)
[2017-02-23] MEDS ORDERED: METOPROLOL TARTRATE 5 MG/5 ML VIAL IV PUSH PRN (13:30)
[2017-02-23] MEDS ORDERED: POTASSIUM CHLORIDE 20 MEQ CONTROLLED RELEASE TAB PO PRN ×2 (13:30)
[2017-02-23] MEDS ORDERED: hydrALAZINE HCL 20 MG/ML VIAL IV PUSH PRN (13:30)
[2017-02-23] MEDS ORDERED: ACETAMINOPHEN/HYDROcodone 325 MG/5 MG TAB PO PRN (13:30)
[2017-02-23] MEDS ORDERED: CALCIUM CHLORIDE INJ 1 GM in SODIUM CHLORIDE 0.9% INJ 100 ML IV PRN (13:30)
[2017-02-23] MEDS ORDERED: CLEVIDIPINE INJ 50 ML IV PRN (13:30)
[2017-02-23] MEDS ORDERED: RESP: ALBUTEROL 2.5 MG/IPRATROPIUM 0.5 MG NEB (PRN) NEB (13:30)
[2017-02-23] MEDS ORDERED: NITROGLYCERIN-D5W 50 MG/250 ML 250 ML IV PRN (13:30)
[2017-02-23] MEDS ORDERED: MORPHINE SULFATE 4 MG/ML INJ IV PUSH PRN (13:30)
[2017-02-23] MEDS ORDERED: Post-op Orders (for Pharmacy) OTHER ONE (13:53)
[2017-02-23] MEDS ORDERED: INSULIN REGULAR (IV INFUSION) 100 UNITS in SODIUM CHLORIDE 0.9% INJ 99 ML IV PRN (14:00)
--- NOTE | 2017-02-23 14:55 | RADRPT ---
EXAM DATE/TIME: 02/23/2017 14:12 [facility] COMPARISON: CHEST PA & LAT, February 13, 2017, 15:40. INDICATIONS : S/P CABG. MEDICAL HISTORY : None. SURGICAL HISTORY : CABG. ENCOUNTER: Initial ACUITY: 1 day PAIN SCORE: Non-responsive. LOCATION: Bilateral chest FINDINGS: Portable AP view of the chest demonstrates mildly enlarged cardiac silhouette in this patient post re cent median sternotomy. Endotracheal tube tip is at the clavicular head level measuring 4.9 cm from t he ashley and nasogastric tube distal tip is in the stomach. Right IJ line tip is in the SVC. There i s a mediastinal drain and left chest tube present. No pneumothorax is identified. There is mild bibas ilar opacity. CONCLUSION: 1. Expected postsurgical changes with mild bibasilar opacity representing atelectasis or consolidatio n. 2. Tubes and lines, as above. No pneumothorax is visualized. Mack Edmonds MD on February 23, 2017 at 14:53 Board Certified Radiologist. This report was verified electronically.
[2017-02-23] MEDS: ALBUMIN 5% INJ 250 ML IV PRN ×2 (15:08→15:32)
[2017-02-23] MEDS: ACETAMINOPHEN 1000 MG/100 ML 100 ML IV SCH ×2 (15:09→21:19)
[2017-02-23] MEDS: ceFAZolin 2 GM PREMIX 50 ML IV SCH (15:09)
--- NOTE | 2017-02-23 15:17 | PD.CAR.PN ---
CVT Progress Note Subjective/Hospital Course: 77-year-old male, patient of Dr. Pineda, also Dr. Le, Dr. Morris Alexandre who has been having some shortness of breath and fatigue for the last 4- 5 months, has a history of aortic stenosis and has been followed on a regular basis by Dr. Pineda. He had a recent echocardiogram on January 09 which showed an ejection fraction of 60%, some grade 1 diastolic dysfunction. The left atrium was mildly dilated. The peak gradient for the aortic valve is 87 mmHg, mean gradient of 53, the valve consistent with severe aortic stenosis, mitral valve had some mild regurgitation and some mild tricuspid regurgitation. Right ventricular systolic pressures of 49 and also underwent heart catheterization 02/13/17 which showed 100% mid distal LAD and the RCA was 70% stenosed. He did right-sided heart cath which showed RA pressures of 8, PA pressure 28/14, wedge pressure 17. Cardiac output of 8, with an index of 3.7. Pt was electively admitted for surgery PAST MEDICAL HISTORY: Aortic stenosis, History of colon polyps, History of lupus and low platelets, Essential hypertension, Thrombocytopenia, Psoriasis, Psoriatic arthritis surgery 02/23 Objective: Vital Signs Date Time Temp Pulse Resp B/P (MAP) Pulse Ox O2 Delivery O2 Flow Rate FiO2 02/23/17 14:00 98.8 76 12 120/58 (78) 98 02/23/17 14:00 Mechanical Ventilator 02/23/17 14:00 98 40 02/23/17 14:00 83 02/23/17 13:00 83 Brittany Mo Feb 23, 2017 15:17
--- NOTE | 2017-02-23 15:21 | HHI.FF ---
Face to Face Verification Diagnosis: (1) Thrombocytopenia (2) Lupus (3) S/P CABG x 2 (4) Coronary artery disease (5) S/P AVR (aortic valve replacement) (6) Severe aortic stenosis Home Health Nursing Order: Signs/symptoms of disease process Medication education-adverse effect Wound care and dressing changes Nursing assessment with vital signs Instructions: Heart and Vascular Surgery patients *Special attention to sternal dressing Mandatory frequency Assess and evaluation, 4 days in a row The next week 3X week 2 times a week for 4 weeks 1 time a week for 5 weeks Schedule Heart and Vascular patients for full 60 day certification period Initial visit Review Open Heart Surgery Discharge Instructions (Sternal precautions, Activity, Elastic hose, Incision care, Driving, Incentive spirometry, Smoking, [place], Work and other) Need Betadine to paint incision Medication reconciliation Importance of follow up care/ check on appointments Make calendar record temperature daily When to call [facility] nurse, review instructions, phone list Incentive Spirometry, demonstration Visit 1- Begin discharge instruction for patient family and/ or caregiver using teach back method- Signs and symptoms of infection Disease characteristics Medicines and side effects Foods and nutrition/ appetite Infection control/ hand washing/ hygiene Visit 2- Continue teaching Discharge instructions- include additional information on smoking cessation , sternal dressing (sternal vac) Visit 3- Continue teaching- Cough and deep breathing, incision monitoring. Choose my plate Visit 4- Continue teaching- Discuss limitations Discuss how they are feeling Discuss progress toward goals Remaining visits- continue teaching and monitoring PREVENA Single Use Negative Wound Therapy System Caregiver Instruction Sheet 1. A Prevena dressing system was applied to the chest incision during surgery , to promote wound healing. It works via a suction device (negative pressure wound therapy) to remove low to moderate levels of exudate (drainage) and infectious materials. We recommend that the device stay in place for up to seven days, from day of surgery. 2. Day of Surgery__/11/02 Day of Removal ___/ 3. The dressing should only be removed by a health ocular care technician. Please arrange removal of device to coincide with Home Health visit and or with Nursing staff at Rehab 4. If skin reddening or irritation of skin occurs, or excessive drainage, please notify the Cardiovascular Surgeons office at [phone]. 5. Light showering is permissible; however the pump should be disconnected and placed in safe location, where it will not get wet. The dressing should not be exposed to direct spray or submerged in water. No bath tub / shower only. Ensure the end of the tubing attached to the dressing is facing down so that water does not enter the top of the tube. 6. To remove Prevena dressing: press purple button to turn off device / remove the suction. Then disconnect the tubing from the pump. The fixation strips should be stretched away from the skin and the dressing lifted at one corner and peeled back until it has been fully removed. 7. After removal, it is ok to shower daily using liquid dial soap and clean wash cloth, rinse and pat dry, and leave incision open to air dry. For any concerns regarding Prevena dressing, and or wounds, please contact Kemi Mendoza, patient navigator at [phone] or notify the Cardiovascular Surgeons office at [phone]. Incentive spirometry Q1 hr x 10, while awake, also use acapella device hourly whole awake Sternal Breast Bone Precautions: NO pushing or pulling, ( pt must use sternal pillow to support chest with all activities and with coughing ( takes up to 3 months breast bone to heal ) Daily incision care: ok to shower daily, no tub bath. Wash all incisions with liquid dial soap, clean wash cloth to each site, rinse and pat dry. Observe for any signs of infection, such as drainage which is dark yellow, molina, green or foul smelling. Immediately report to the surgeon any drainage from the chest incision, or legs, and for any abnormal drainage from the chest tube sites. Notify surgeon if any temp >101.5 degrees F. When specialty dressing removed/ or if you do not have one, continue to shower daily as above, then rinse and pat incision dry and paint with betadine daily x 5 days. Allow steri strips to fall off if you have any. Avoid lotions, creams, salves, oils, etc. for the first month Please see attached forms for additional instructions regarding post Open Heart specialty wound vacuum dressings. RICHARD or Prevena , Dressing to be removed by Nursing staff on __/15/ F/U appointment: as per DC instructions: PCP in 2 weeks, CV surgeon 2 weeks, Addressograph Operator 3-4 weeks For any questions regarding incisions/ dressing / meds / post op care or above Symptoms, Sunday 8am-5pm Heart & Vascular Surgery Office ( Dr. Siegel & Dr. Encarnacion), After Hours / Nights (5pm -8am) Weekends and Holidays Please call [facility] ([facility]) Charge Nurse I have seen patient Mack Desouza on 02/23/17. My clinical findings support the need for the requested home health care services because: Deconditioned w/ increased weakness I certify that my clinical findings support that this patient is homebound because: Post-op weakness Brittany Mo Feb 23, 2017 15:21
[2017-02-23] MEDS ORDERED: PHENYLEPHRINE 40 MG in D5W 500 ML IV PRN (15:30)
[2017-02-23] MEDS ORDERED: TERBUTALINE INJ 1 MG/ML AMP SQ PRN (15:30)
[2017-02-23] MEDS ORDERED: DEXMEDETOMIDINE 200 MCG in NS 48 ML IV PRN (15:30)
--- NOTE | 2017-02-23 15:30 | PD.OP ---
cc: Truman Pineda MD; Belle Siegel MD Operative Report Date of Surgery: Feb 23, 2017 Preoperative Diagnosis: Postoperative Diagnosis: Procedure: 1. Coronary Artery Bypass Grafting x 2 with left internal mammary artery (NAVARRETE) to left anterior descending (LAD), reverse saphenous vein graft to the distal Right Coronary Artery (RCA) 2. Aortic Valve Replacement with 23mm Medtronic Mosaic Tissue Valve 3. Right Leg Endoscopic Vein [place] 4. Intraoperative Vein Mapping. Surgeon: Belle Siegel Lumber Straightened(s): Devon Fernando Operation and Findings: PREPROCEDURE DIAGNOSES 1. Severe Two Vessel Coronary Artery Disease. 2. Critical Aortic Valve Stenosis 3. Thrombocytopenia POSTPROCEDURE DIAGNOSES Same SURGICAL PROCEDURE 1. Coronary Artery Bypass Grafting x 2 with left internal mammary artery (NAVARRETE) to left anterior descending (LAD), reverse saphenous vein graft to the distal Right Coronary Artery (RCA) 2. Aortic Valve Replacement with 23mm Medtronic Mosaic Tissue Valve 3. Right Leg Endoscopic Vein [place] 4. Intraoperative Vein Mapping. SURGEON Belle Sieegl MD TOY ELECTRIC TRAIN REPAIRER RADHA Flores PA-C ANESTHESIA General endotracheal [employer] ASSISTANT PRINCIPAL LORENZO Mejia MD PREPARATION ChloraPrep. COUNTS Needle, sponge, and instrument counts were correct. DRAINS Two 32-Nigerien mediastinal tubes. COMPLICATIONS None. INDICATIONS FOR PROCEDURE The patient is a 77-year-old presenting with shortness of breath and known . Patient was noted to have two-vessel coronary artery disease in addition to severe . The patient is being brought to the operating room for surgical revascularization and AVR therapy. PROCEDURE Patient was brought to the operating room and placed supine on the OR table. Following the induction of adequate general endotracheal anesthesia and placement of appropriate monitoring devices, intraoperative vein mapping was performed which revealed small and marginal-caliber conduit in bilateral lower extremities. The patient was then prepped and draped in standard sterile fashion. Next, 2500 units of intravenous heparin was given. The right greater saphenous vein was harvested endoscopically. This appeared to be a small- caliber conduit. Simultaneously, a median sternotomy was performed and the left internal mammary artery dissected free off the posterior sternal table. The patient was systemically heparinized and anticoagulation monitored by serial ACT measurements. The internal mammary artery had good pulsatile flow in it and was a good-caliber conduit. The pericardium was then divided in the midline , the cradle created and targets analyzed. Then 2 pursestring sutures of 2-0 Ethibond were placed on the aorta proximal to the takeoff of the innominate artery, another was placed in the right atrial appendage. At this point, aortic and 2-stage venous cannulas were introduced and attached to the arterial and venous components of the bypass circuit respectively. Antegrade cardioplegia cannula and a left ventricular vent, through the right superior pulmonary vein, were also placed. The patient was placed on cardiopulmonary bypass and core cooling initiated to a temperature of 32 degrees centigrade. At this point, all anastomoses were performed in a pump-assisted, beating-heart fashion using the Maquet stabilizing system. The left internal mammary artery was anastomosed to the mid LAD (2 mm) in an end-to-side fashion using 7-0 Prolene. Segment of saphenous vein graft was then anastomosed to the distal RCA (3 mm) in an end-to- side fashion using 7-0 Prolene. The crossclamp was applied and 2 L of cardioplegia solution (Fdc HTK) given in an antegrade fashion into the root as well as through the RCA graft, in addition to topical cooling with slushed saline. Upon achieving adequate diastolic arrest of the heart a transverse aortotomy was performed extending towards the non-coronary annulus. The aortic valve was noted to be very heavily calcified with the calcification extending into ascending aorta as well as the anterior leaflet of the mitral valve. The valve was excised and sent for microbiologic analysis. Circumferential decalcification was performed. Horizontal mattress sutures of pledgeted 2-0 Ethibond were placed circumferentially in the aortic annulus with the pledgets on the ventricular side. After adequate sizing, a 23 mm Medtronic Mosaic tissue valve was brought in the surgical field and the sutures passed through the skirt. The valve was situated supra-annular. The sutures were tied with Cor-knots. This appeared to be a good fit. Gradual rewarming was initiated and the aortotomy closed in 2 layers. This was with 4-0 Prolene; the 1st layer being horizontal mattress, the 2nd layer being running baseball stitch. The proximal anastomosis was then constructed to the ascending aorta in a running manner using 6-0 Prolene.The cross clamp was removed and upon achieving normothermic cardiac activity, the patient was weaned off of the cardiopulmonary bypass circuit without any difficulty. Transesophageal echocardiography revealed a well-situated aortic prosthesis with no evidence of perivalvular leak and no aortic stenosis or aortic regurgitation. Protamine was administered. Decannulation was performed and all sites were inspected for hemostasis. All anastomotic sites were inspected and appeared to be hemostatic and patent. Strict hemostasis was assured. The closure was undertaken. 2 chest tubes were placed. The pericardium was reapproximated in the midline. The sternum was approximated using sternal wires. The muscular and fascial layers were then closed in 3 layers. The endoscopic vein harvest site was closed in 2 layers. The patient tolerated the procedure well and was transferred to CVICU in stable condition. Belle Siegel MD Feb 23, 2017 15:30
[2017-02-23] MEDS: DOBUTamine INJ 250 MG in DEXTROSE 5% IN WATER INJ 230 ML IV SCH ×2 (16:01)
[2017-02-23] MEDS: METOCLOPRAMIDE HCL 10 MG/2 ML VIAL IV PUSH SCH ×2 (16:05→21:17)
[2017-02-23] MEDS: RESP: ALBUTEROL 2.5 MG/IPRATROPIUM 0.5 MG NEB (SCH) NEB ×2 (16:19→20:51)
[2017-02-23] MEDS ORDERED: SODIUM BICARBONATE 8.4% SOLN 50 MEQ/50 ML VIAL IV ONE (17:30)
[2017-02-23] MEDS ORDERED: EPINEPHrine 2 MG/D5W 250 ML IV PRN ×2 (18:15)
[2017-02-23] MEDS: SODIUM BICARBONATE 8.4% SOLN 50 MEQ/50 ML VIAL IV PUSH PRN ×2 (18:24→20:41)
[2017-02-23] MEDS: SODIUM CHLORIDE 0.9% FLUSH 10 ML FLUSH IV FLUSH SCH (21:00)
[2017-02-23] MEDS: AMIODARONE 200 MG TAB PO SCH (21:19)
[2017-02-23] MEDS ORDERED: CALCIUM CHLORIDE INJ 1 GM in SODIUM CHLORIDE 0.9% INJ 100 ML IV ONE (22:00)
[2017-02-24] VITALS (13 sets, daily range): BP systolic 88–150; BP diastolic 39–70; PULSE 84–104; RESP 14–18; TEMP 97.9–98.6; O2SAT 92–95
[2017-02-24] MEDS: ceFAZolin 2 GM PREMIX 50 ML IV SCH ×3 (00:31→17:44)
[2017-02-24] MEDS: ACETAMINOPHEN 1000 MG/100 ML 100 ML IV SCH ×2 (02:47→09:34)
[2017-02-24] MEDS: RESP: ALBUTEROL 2.5 MG/IPRATROPIUM 0.5 MG NEB (SCH) NEB ×6 (03:24→21:46)
--- NOTE | 2017-02-24 05:28 | RADRPT ---
EXAM DATE/TIME: 02/24/2017 04:32 [facility] COMPARISON: CHEST SINGLE AP, February 23, 2017, 14:12. INDICATIONS : Shortness of breath, possible pulmonary disease. MEDICAL HISTORY : None. SURGICAL HISTORY : CABG. ENCOUNTER: Subsequent ACUITY: 2 days PAIN SCORE: 8/10 LOCATION: Bilateral chest FINDINGS: One left-sided chest tube, right-sided chest tube, right jugular line, sternotomy wires, bilateral ef fusions and airspace disease noted. This is increased bilaterally. CONCLUSION: Bilateral airspace disease has increased from the previous study. Oscar Hamm MD on February 24, 2017 at 5:25 Board Certified Radiologist. This report was verified electronically.
[2017-02-24 05:37] LABS: HEMATOCRIT 24.4 % (39.0-51.0); MEAN CELL VOLUME 101.5 FL (80.0-100.0); MEAN CORPUSCULAR HEMOGLOBIN 35.6 PG (27.0-34.0); MEAN CORPUSCULAR HGB CONC 35.1 % (32.0-36.0); PLATELET COUNT 113 TH/MM3 (150-450); RED BLOOD COUNT 2.41 MIL/MM3 (4.50-5.90); RED CELL DISTRIBUTION WIDTH 13.3 % (11.6-17.2); REVIEW FLAG FINAL; WHITE BLOOD COUNT 8.5 TH/MM3 (4.0-11.0)
[2017-02-24 05:54] LABS: MAGNESIUM 1.9 MG/DL (1.5-2.5); POTASSIUM 4.1 MEQ/L (3.5-5.1)
[2017-02-24] MEDS: PANTOPRAZOLE SOD 40 MG DELAYED RELEASE TAB PO SCH (06:41)
[2017-02-24] MEDS: CLOPIDOGREL 75 MG TAB PO SCH (09:30)
[2017-02-24] MEDS: ASPIRIN 81 MG CHEW TAB PO SCH (09:30)
[2017-02-24] MEDS: AMIODARONE 200 MG TAB PO SCH ×2 (09:30→20:12)
[2017-02-24] MEDS: METOCLOPRAMIDE HCL 10 MG/2 ML VIAL IV PUSH SCH ×4 (09:31→20:13)
[2017-02-24] MEDS: SODIUM CHLORIDE 0.9% FLUSH 10 ML FLUSH IV FLUSH SCH ×2 (09:38→20:12)
--- NOTE | 2017-02-24 10:14 | PD.CAR.PN ---
CVT Progress Note Subjective/Hospital Course: 77-year-old male, patient of Dr. Pineda, also Dr. Le, Dr. Morris Alexandre who has been having some shortness of breath and fatigue for the last 4- 5 months, has a history of aortic stenosis and has been followed on a regular basis by Dr. Pineda. He had a recent echocardiogram on January 09 which showed an ejection fraction of 60%, some grade 1 diastolic dysfunction. The left atrium was mildly dilated. The peak gradient for the aortic valve is 87 mmHg, mean gradient of 53, the valve consistent with severe aortic stenosis, mitral valve had some mild regurgitation and some mild tricuspid regurgitation. Right ventricular systolic pressures of 49 and also underwent heart catheterization 02/13/17 which showed 100% mid distal LAD and the RCA was 70% stenosed. He did right-sided heart cath which showed RA pressures of 8, PA pressure 28/14, wedge pressure 17. Cardiac output of 8, with an index of 3.7. Pt was electively admitted for surgery PAST MEDICAL HISTORY: Aortic stenosis, History of colon polyps, History of lupus and low platelets, Essential hypertension, Thrombocytopenia, Psoriasis, Psoriatic arthritis surgery 02/23 Procedure: 1. Coronary Artery Bypass Grafting x 2 with left internal mammary artery (NAVARRETE) to left anterior descending (LAD), reverse saphenous vein graft to the distal Right Coronary Artery (RCA) 2. Aortic Valve Replacement with 23mm Medtronic Mosaic Tissue Valve 3. Right Leg Endoscopic Vein [place] 4. Intraoperative Vein Mapping. 02/24 Doing well. Extubated ans tolerating Off of all gtts Transfer to CPCU Maintain CT Incentive spirometer Objective: Vital Signs Date Time Temp Pulse Resp B/P (MAP) Pulse Ox O2 Delivery O2 Flow Rate FiO2 02/24/17 09:25 92 Nasal Cannula 6.00 02/24/17 08:14 94 Nasal Cannula 4.00 02/24/17 08:14 89 02/24/17 07:00 98.0 88 16 150/65 (93) 94 112/67 (82) 02/24/17 07:00 91 02/24/17 05:09 16 02/24/17 04:00 96 Nasal Cannula 4.00 02/24/17 04:00 90 02/24/17 04:00 90 148/83 02/24/17 03:17 18 02/24/17 03:00 87 02/24/17 03:00 98.1 84 18 124/59 (80) 93 127/70 (89) 02/24/17 02:30 88 126/72 02/24/17 00:06 98.6 02/24/17 00:00 94 Nasal Cannula 4.00 02/24/17 00:00 103 02/24/17 00:00 102 140/78 02/23/17 23:30 102 136/81 02/23/17 23:11 101 02/23/17 23:00 98.5 102 18 109/60 (76) 96 131/77 (95) 02/23/17 23:00 104 131/77 02/23/17 22:00 103 124/72 02/23/17 21:33 104 119/68 02/23/17 21:00 104 136/72 02/23/17 20:05 98.6 02/23/17 20:00 95 Nasal Cannula 4.00 02/23/17 20:00 103 02/23/17 20:00 108 93/57 02/23/17 19:45 106 116/68 02/23/17 19:30 112 100/62 02/23/17 19:15 107 114/67 02/23/17 19:02 109 112/67 02/23/17 19:02 107 112/67 02/23/17 19:00 98.9 107 18 110/58 (75) 96 116/69 (85) 02/23/17 19:00 107 02/23/17 18:00 116 02/23/17 17:00 112 02/23/17 16:55 98 Nasal Cannula 3.00 02/23/17 16:55 98 Nasal Cannula 3 02/23/17 16:00 Mechanical Ventilator 35 02/23/17 16:00 95 02/23/17 15:00 98.0 75 14 90/51 (64) 100 02/23/17 15:00 75 02/23/17 14:30 98.8 02/23/17 14:00 98.8 76 12 120/58 (78) 98 02/23/17 14:00 Mechanical Ventilator 02/23/17 14:00 98 40 02/23/17 14:00 83 02/23/17 14:00 83 120/58 02/23/17 13:00 83 Labs: Laboratory Tests Test 02/24/17 04:50 White Blood Count 8.5 TH/MM3 (4.0-11.0) Red Blood Count 2.41 MIL/MM3 (4.50-5.90) Hemoglobin 8.6 GM/DL (13.0-17.0) Hematocrit 24.4 % (39.0-51.0) Mean Corpuscular Volume 101.5 FL (80.0-100.0) Mean Corpuscular Hemoglobin 35.6 PG (27.0-34.0) Mean Corpuscular Hemoglobin Concent 35.1 % (32.0-36.0) Red Cell Distribution Width 13.3 % (11.6-17.2) Platelet Count 113 TH/MM3 (150-450) Mean Platelet Volume 7.3 FL (7.0-11.0) Blood Urea Nitrogen 21 MG/DL (7-18) Creatinine 1.52 MG/DL (0.60-1.30) Random Glucose 108 MG/DL (74-106) Calcium Level 8.5 MG/DL (8.5-10.1) Magnesium Level 1.9 MG/DL (1.5-2.5) Sodium Level 143 MEQ/L (136-145) Potassium Level 4.1 MEQ/L (3.5-5.1) Chloride Level 106 MEQ/L (98-107) Carbon Dioxide Level 23.0 MEQ/L (21.0-32.0) Anion Gap 14 MEQ/L (5-15) Estimat Glomerular Filtration Rate 45 ML/MIN (>89) Result Diagram: 02/24/1744902/24/170 (1) Coronary artery disease (2) Thrombocytopenia (3) Severe aortic stenosis (4) Lupus (5) S/P AVR (aortic valve replacement) (6) S/P CABG x 2 Belle Siegel MD Feb 24, 2017 10:14
[2017-02-24] MEDS ORDERED: BISACODYL 10 MG SUPP RECTAL PRN (10:15)
[2017-02-24] MEDS ORDERED: diphenhydrAMINE HCL 50 MG CAP PO PRN (10:15)
[2017-02-24] MEDS ORDERED: GLUCAGON 1 MG/ML VIAL OTHER PRN (10:15)
[2017-02-24] MEDS ORDERED: ALPRAZolam 0.25 MG TAB PO PRN (10:15)
[2017-02-24] MEDS ORDERED: DEXTROSE 50% IN WATER 50 ML VIAL(D50) IV PUSH PRN (10:15)
[2017-02-24] MEDS ORDERED: SOD PHOSPHATE/SOD BIPHOSPHATE (ADULT) ENEMA 133ML RECTAL PRN (10:15)
[2017-02-24] MEDS ORDERED: PILL SPLITTER OTHER PRN (10:30)
[2017-02-24] MEDS: DOBUTamine INJ 250 MG in DEXTROSE 5% IN WATER INJ 230 ML IV SCH ×2 (12:38)
[2017-02-24] MEDS ORDERED: INSULIN DETEMIR 100 UNITS/ML VIAL SQ ONE (13:15)
[2017-02-24] MEDS: INSULIN ASPART SUPPLEMENTAL SCALE SQ SCH ×3 (13:42→22:06)
--- NOTE | 2017-02-24 13:55 | EKG ---
Date Performed: 02/24/2017 Time Performed: 03:41:06 PTAGE: 77 years EKG: Sinus rhythm Leftward axis Poor R wave progression - probable normal variant Borderline ECG PREVIOUS TRACING 02/13/17 Since previous tracing, PVCs no longer present, otherwise no signifi cant change. DOCTOR: Bran Cormier Interpretating Date/Time 02/24/2017 13:53:47
[2017-02-24] MEDS: DOCUSATE SODIUM 100 MG CAP PO SCH (20:13)
[2017-02-24] MEDS: SENNOSIDES 8.6 MG TAB PO SCH (20:13)
[2017-02-24] MEDS: TAMSULOSIN HCL 0.4 MG CAP PO SCH (20:13)
[2017-02-24] MEDS: METOPROLOL TARTRATE 25 MG TAB PO SCH (20:13)
[2017-02-24 23:55] LABS: BLOOD GAS BASE EXCESS 4.9 mmol/L (-2-2); BLOOD GAS CARBOXYHEMOGLOBIN 1.4 % (0-4); BLOOD GAS HCO3 28 mmol/L (22-26); BLOOD GAS METHEMOGLOBIN 1.2 % (0-2); BLOOD GAS O2 HGB SATURATION 91 % (90-100); BLOOD GAS OXYGEN CONTENT 9.6 Vol % (12.0-20.0); BLOOD GAS PCO2 37 mmHg (38-42); BLOOD GAS PO2 68 mmHg (61-120); BLOOD GAS TOTAL HGB 7.4 G/DL (12.0-16.0); CRITICAL VALUE NO; TEMP CORR TO 98.6
[2017-02-24 23:56] LABS: DRAW SITE LT RADIAL; LITER FLOW 10 L/M; NUMBER OF ARTERIAL PUNCTURES 1; OXYGEN DEVICE SIMPLE MASK; STAT NO; ULNAR PULSE PRESENT
[2017-02-25] VITALS (19 sets, daily range): BP systolic 87–127; BP diastolic 51–82; PULSE 86–126; RESP 15–18; TEMP 98.1–99.1; O2SAT 91–99
[2017-02-25] MEDS: ceFAZolin 2 GM PREMIX 50 ML IV SCH (00:27)
[2017-02-25] MEDS: INSULIN ASPART SUPPLEMENTAL SCALE SQ SCH ×6 (02:19→21:21)
[2017-02-25 04:19] LABS: AUTOMATED NEUTROPHIL # 9.9 TH/MM3 (1.8-7.7); BASOPHIL % 0.1 % (0.0-2.0); HEMATOCRIT 27.1 % (39.0-51.0); LYMPH % 8.3 % (9.0-44.0); MEAN CELL VOLUME 95.5 FL (80.0-100.0); MEAN CORPUSCULAR HEMOGLOBIN 33.6 PG (27.0-34.0); MEAN CORPUSCULAR HGB CONC 35.1 % (32.0-36.0); MONO % 9.1 % (0.0-8.0); NEUT % 82.5 % (16.0-70.0); PLATELET COUNT 71 TH/MM3 (150-450); RED BLOOD COUNT 2.84 MIL/MM3 (4.50-5.90); RED CELL DISTRIBUTION WIDTH 16.5 % (11.6-17.2)
[2017-02-25 04:25] LABS: HEMO FLAGS AUTO DIFF
[2017-02-25 04:52] LABS: BICARBONATE 28.9 MEQ/L (21.0-32.0); POTASSIUM 4.1 MEQ/L (3.5-5.1)
[2017-02-25] MEDS: PANTOPRAZOLE SOD 40 MG DELAYED RELEASE TAB PO SCH (05:33)
[2017-02-25 06:43] LABS: PLATELET ESTIMATE SMEAR LOW (NORMAL); PLATELET MORPHOLOGY NORMAL (NORMAL)
[2017-02-25 06:44] LABS: SCAN/DIFF AUTO DIFF CONFIRMED
[2017-02-25] MEDS: RESP: ALBUTEROL 2.5 MG/IPRATROPIUM 0.5 MG NEB (SCH) NEB ×5 (08:09→21:20)
[2017-02-25] MEDS: METOPROLOL TARTRATE 25 MG TAB PO SCH ×2 (09:00→21:16)
[2017-02-25] MEDS: CLOPIDOGREL 75 MG TAB PO SCH (09:00)
[2017-02-25] MEDS: DOCUSATE SODIUM 100 MG CAP PO SCH ×2 (09:12→21:16)
[2017-02-25] MEDS: ATORVASTATIN 40 MG TAB PO SCH (09:12)
[2017-02-25] MEDS: HYDROXYCHLOROQUINE SULFATE 200 MG TAB PO SCH (09:13)
[2017-02-25] MEDS: MULTIVITAMINS/MINERALS THERAPEUTIC TAB PO SCH (09:13)
[2017-02-25] MEDS: AMIODARONE 200 MG TAB PO SCH ×2 (09:13→20:16)
[2017-02-25] MEDS: ASPIRIN 81 MG CHEW TAB PO SCH (09:14)
[2017-02-25] MEDS: METOCLOPRAMIDE HCL 10 MG/2 ML VIAL IV PUSH SCH ×4 (09:17→21:17)
[2017-02-25] MEDS: MAGNESIUM HYDROXIDE SUSP 30 ML CUP PO SCH (09:17)
[2017-02-25] MEDS: POLYETHYLENE GLYCOL 17 GM PKG PO SCH (09:17)
[2017-02-25] MEDS: SODIUM CHLORIDE 0.9% FLUSH 10 ML FLUSH IV FLUSH SCH ×2 (09:18→20:16)
--- NOTE | 2017-02-25 09:28 | PD.CAR.PN ---
CVT Progress Note Subjective/Hospital Course: 77-year-old male, patient of Dr. Pineda, also Dr. Le, Dr. Morris Alexandre who has been having some shortness of breath and fatigue for the last 4- 5 months, has a history of aortic stenosis and has been followed on a regular basis by Dr. Pineda. He had a recent echocardiogram on January 09 which showed an ejection fraction of 60%, some grade 1 diastolic dysfunction. The left atrium was mildly dilated. The peak gradient for the aortic valve is 87 mmHg, mean gradient of 53, the valve consistent with severe aortic stenosis, mitral valve had some mild regurgitation and some mild tricuspid regurgitation. Right ventricular systolic pressures of 49 and also underwent heart catheterization 02/13/17 which showed 100% mid distal LAD and the RCA was 70% stenosed. He did right-sided heart cath which showed RA pressures of 8, PA pressure 28/14, wedge pressure 17. Cardiac output of 8, with an index of 3.7. Pt was electively admitted for surgery PAST MEDICAL HISTORY: Aortic stenosis, History of colon polyps, History of lupus and low platelets, Essential hypertension, Thrombocytopenia, Psoriasis, Psoriatic arthritis surgery 02/23 Procedure: 1. Coronary Artery Bypass Grafting x 2 with left internal mammary artery (NAVARRETE) to left anterior descending (LAD), reverse saphenous vein graft to the distal Right Coronary Artery (RCA) 2. Aortic Valve Replacement with 23mm Medtronic Mosaic Tissue Valve 3. Right Leg Endoscopic Vein [place] 4. Intraoperative Vein Mapping. 02/24 Doing well. Extubated ans tolerating Off of all gtts Transfer to CPCU Maintain CT Incentive spirometer 02/25 Hypotensive last pm. Clinically stable this morning Awaiting CPCU bed Maintain CT for another day Objective: Vital Signs Date Time Temp Pulse Resp B/P (MAP) Pulse Ox O2 Delivery O2 Flow Rate FiO2 02/25/17 08:11 99 Nasal Cannula 3.00 02/25/17 07:00 86 02/25/17 07:00 94 02/25/17 07:00 98.1 86 16 107/60 (76) 91 02/25/17 07:00 94 Nasal Cannula 4.00 02/25/17 03:18 89 02/25/17 03:18 97 Simple Mask 10.00 02/25/17 03:18 88 02/25/17 03:18 98.3 90 15 97/58 (71) 96 02/25/17 02:40 93 16 95/82 95 02/25/17 02:26 98.6 90 15 116/51 97 02/25/17 02:12 98.6 89 15 92/60 95 02/25/17 00:37 98.8 89 87/51 92 02/25/17 00:18 98.8 93 15 127/54 93 02/24/17 23:53 91 02/24/17 23:53 95 Simple Mask 12.00 02/24/17 23:53 98.6 91 14 88/56 (67) 95 02/24/17 23:53 90 02/24/17 20:55 92 Nasal Cannula 6.00 02/24/17 19:54 100 02/24/17 19:54 98.4 104 15 104/39 (60) 92 02/24/17 19:54 92 Nasal Cannula 4.00 02/24/17 19:51 103 02/24/17 16:00 94 Nasal Cannula 4.00 02/24/17 16:00 100 02/24/17 15:09 95 02/24/17 15:09 97.9 96 16 112/65 (81) 94 Arterial Line 02/24/17 15:00 96 02/24/17 14:17 95 4.00 02/24/17 12:13 94 02/24/17 12:13 100 Nasal Cannula 4.00 02/24/17 12:11 16 02/24/17 11:00 98.1 88 16 109/63 (78) 94 Arterial Line 02/24/17 11:00 99 02/24/17 10:19 98 16 128/56 (80) 95 110/64 (79) Labs: Laboratory Tests Test 02/24/17 23:45 02/25/17 04:00 Blood Gas Puncture Site LT RADIAL Blood Gas Patient Temperature 98.6 Blood Gas HCO3 28 mmol/L (22-26) Blood Gas Base Excess 4.9 mmol/L (-2-2) Blood Gas Oxygen Saturation 91 % (90-100) Arterial Blood pH 7.50 (7.380-7.420) Arterial Blood Partial Pressure CO2 37 mmHg (38-42) Arterial Blood Partial Pressure O2 68 mmHg (61-120) Arterial Blood Oxygen Content 9.6 Vol % (12.0-20.0) Arterial Blood Carboxyhemoglobin 1.4 % (0-4) Arterial Blood Methemoglobin 1.2 % (0-2) Blood Gas Hemoglobin 7.4 G/DL (12.0-16.0) Oxygen Delivery Device SIMPLE MASK Blood Gas Liter Flow 10 L/M White Blood Count 12.0 TH/MM3 (4.0-11.0) Red Blood Count 2.84 MIL/MM3 (4.50-5.90) Hemoglobin 9.5 GM/DL (13.0-17.0) Hematocrit 27.1 % (39.0-51.0) Mean Corpuscular Volume 95.5 FL (80.0-100.0) Mean Corpuscular Hemoglobin 33.6 PG (27.0-34.0) Mean Corpuscular Hemoglobin Concent 35.1 % (32.0-36.0) Red Cell Distribution Width 16.5 % (11.6-17.2) Platelet Count 71 TH/MM3 (150-450) Mean Platelet Volume 7.3 FL (7.0-11.0) Neutrophils (%) (Auto) 82.5 % (16.0-70.0) Lymphocytes (%) (Auto) 8.3 % (9.0-44.0) Monocytes (%) (Auto) 9.1 % (0.0-8.0) Eosinophils (%) (Auto) 0.0 % (0.0-4.0) Basophils (%) (Auto) 0.1 % (0.0-2.0) Neutrophils # (Auto) 9.9 TH/MM3 (1.8-7.7) Lymphocytes # (Auto) 1.0 TH/MM3 (1.0-4.8) Monocytes # (Auto) 1.1 TH/MM3 (0-0.9) Eosinophils # (Auto) 0.0 TH/MM3 (0-0.4) Basophils # (Auto) 0.0 TH/MM3 (0-0.2) CBC Comment AUTO DIFF Differential Comment AUTO DIFF CONFIRMED Platelet Estimate LOW (NORMAL) Platelet Morphology Comment NORMAL (NORMAL) Blood Urea Nitrogen 39 MG/DL (7-18) Creatinine 1.63 MG/DL (0.60-1.30) Random Glucose 134 MG/DL (74-106) Calcium Level 8.3 MG/DL (8.5-10.1) Magnesium Level 2.0 MG/DL (1.5-2.5) Sodium Level 137 MEQ/L (136-145) Potassium Level 4.1 MEQ/L (3.5-5.1) Chloride Level 100 MEQ/L (98-107) Carbon Dioxide Level 28.9 MEQ/L (21.0-32.0) Anion Gap 8 MEQ/L (5-15) Estimat Glomerular Filtration Rate 41 ML/MIN (>89) Result Diagram: 02/25/1739902/25/17399 (1) Coronary artery disease (2) Thrombocytopenia (3) Severe aortic stenosis (4) Lupus (5) S/P AVR (aortic valve replacement) (6) S/P CABG x 2 Belle Siegel MD Feb 25, 2017 09:28
[2017-02-25] MEDS: DOBUTamine INJ 250 MG in DEXTROSE 5% IN WATER INJ 230 ML IV SCH ×2 (09:31)
[2017-02-25] MEDS: TAMSULOSIN HCL 0.4 MG CAP PO SCH (21:00)
[2017-02-25] MEDS: SENNOSIDES 8.6 MG TAB PO SCH (21:16)
[2017-02-25] MEDS ORDERED: METOPROLOL TARTRATE 25 MG TAB PO ONE (21:56)
[2017-02-26] VITALS (27 sets, daily range): BP systolic 83–133; BP diastolic 54–80; PULSE 70–120; RESP 16–20; TEMP 98.1–98.7; O2SAT 94–99
[2017-02-26] MEDS: INSULIN ASPART SUPPLEMENTAL SCALE SQ SCH ×5 (02:00→21:00)
[2017-02-26] MEDS: PANTOPRAZOLE SOD 40 MG DELAYED RELEASE TAB PO SCH (06:42)
[2017-02-26] MEDS: RESP: ALBUTEROL 2.5 MG/IPRATROPIUM 0.5 MG NEB (SCH) NEB (07:29)
[2017-02-26] MEDS: METOCLOPRAMIDE HCL 10 MG/2 ML VIAL IV PUSH SCH ×4 (07:51→21:31)
[2017-02-26] MEDS: DOCUSATE SODIUM 100 MG CAP PO SCH ×2 (10:37→21:00)
[2017-02-26] MEDS: SODIUM CHLORIDE 0.9% FLUSH 10 ML FLUSH IV FLUSH SCH ×2 (10:37→21:32)
[2017-02-26] MEDS: ASPIRIN 81 MG CHEW TAB PO SCH (10:37)
[2017-02-26] MEDS: POLYETHYLENE GLYCOL 17 GM PKG PO SCH (10:38)
[2017-02-26] MEDS: HYDROXYCHLOROQUINE SULFATE 200 MG TAB PO SCH (10:38)
[2017-02-26] MEDS: MULTIVITAMINS/MINERALS THERAPEUTIC TAB PO SCH (10:38)
[2017-02-26] MEDS: MAGNESIUM HYDROXIDE SUSP 30 ML CUP PO SCH (10:38)
[2017-02-26] MEDS: CLOPIDOGREL 75 MG TAB PO SCH (10:38)
[2017-02-26] MEDS: METOPROLOL TARTRATE 25 MG TAB PO SCH ×2 (10:39→21:32)
[2017-02-26] MEDS: ATORVASTATIN 40 MG TAB PO SCH ×2 (10:39→21:32)
[2017-02-26] MEDS ORDERED: AMIODARONE INJ 150 MG in DEXTROSE 5% IN WATER 100ML INJ 100 ML IV ONE ×2 (11:00)
[2017-02-26] MEDS ORDERED: AMIODARONE INJ 450 MG in DEXTROSE 5% IN WATE(EXCEL) INJ 241 ML IV PRN ×2 (11:00)
[2017-02-26 11:18] LABS: AUTOMATED NEUTROPHIL # 8.5 TH/MM3 (1.8-7.7); BASOPHIL % 0.1 % (0.0-2.0); EOSINOPHIL % 0.1 % (0.0-4.0); HEMATOCRIT 27.2 % (39.0-51.0); LYMPH % 8.7 % (9.0-44.0); LYMPHOCYTE # 0.9 TH/MM3 (1.0-4.8); MEAN CORPUSCULAR HEMOGLOBIN 34.9 PG (27.0-34.0); MONO % 11.8 % (0.0-8.0); NEUT % 79.3 % (16.0-70.0); PLATELET COUNT 85 TH/MM3 (150-450); RED CELL DISTRIBUTION WIDTH 16.8 % (11.6-17.2); WHITE BLOOD COUNT 10.7 TH/MM3 (4.0-11.0)
[2017-02-26 11:21] LABS: HEMO FLAGS AUTO DIFF
[2017-02-26 11:39] LABS: BICARBONATE 29.7 MEQ/L (21.0-32.0); MAGNESIUM 2.1 MG/DL (1.5-2.5); POTASSIUM 4.1 MEQ/L (3.5-5.1)
--- NOTE | 2017-02-26 11:51 | PD.CAR.PN ---
CVT Progress Note Subjective/Hospital Course: 77-year-old male, patient of Dr. Pineda, also Dr. Le, Dr. Morris Alexandre who has been having some shortness of breath and fatigue for the last 4- 5 months, has a history of aortic stenosis and has been followed on a regular basis by Dr. Pineda. He had a recent echocardiogram on January 09 which showed an ejection fraction of 60%, some grade 1 diastolic dysfunction. The left atrium was mildly dilated. The peak gradient for the aortic valve is 87 mmHg, mean gradient of 53, the valve consistent with severe aortic stenosis, mitral valve had some mild regurgitation and some mild tricuspid regurgitation. Right ventricular systolic pressures of 49 and also underwent heart catheterization 02/13/17 which showed 100% mid distal LAD and the RCA was 70% stenosed. He did right-sided heart cath which showed RA pressures of 8, PA pressure 28/14, wedge pressure 17. Cardiac output of 8, with an index of 3.7. Pt was electively admitted for surgery PAST MEDICAL HISTORY: Aortic stenosis, History of colon polyps, History of lupus and low platelets, Essential hypertension, Thrombocytopenia, Psoriasis, Psoriatic arthritis surgery 02/23 Procedure: 1. Coronary Artery Bypass Grafting x 2 with left internal mammary artery (NAVARRETE) to left anterior descending (LAD), reverse saphenous vein graft to the distal Right Coronary Artery (RCA) 2. Aortic Valve Replacement with 23mm Medtronic Mosaic Tissue Valve 3. Right Leg Endoscopic Vein [place] 4. Intraoperative Vein Mapping. 02/24 Doing well. Extubated ans tolerating Off of all gtts Transfer to CPCU Maintain CT Incentive spirometer 02/25 Hypotensive last pm. Clinically stable this morning Awaiting CPCU bed Maintain CT for another day 02/26 pt went into afib RVR last pm, start on amiodarone IV protocol mario v score 4 however pt has hx of chronic thrombocytopenia / PLT count has improved to 85 will need to discuss form of anticoagulation chest tube removed without difficulty on nasal cannula Objective: GENERAL: SKIN: Warm and dry.prevena to chest , incision intact to left leg HEAD: Normocephalic. EYES: No scleral icterus. No injection or drainage. NECK: Supple, trachea midline. No JVD or lymphadenopathy. CARDIOVASCULAR: irregular rate and rhythm without murmurs, gallops, or rubs. RESPIRATORY: diminished in bases Breath sounds equal bilaterally. No accessory muscle use. chest tube removed GASTROINTESTINAL: Abdomen soft, non-tender, nondistended. MUSCULOSKELETAL: No cyanosis, or edema. BACK: Nontender without obvious deformity. No CVA tenderness. Vital Signs Date Time Temp Pulse Resp B/P (MAP) Pulse Ox O2 Delivery O2 Flow Rate FiO2 02/26/17 08:00 95 Nasal Cannula 4.00 02/26/17 08:00 98.7 70 18 104/55 (71) 95 02/26/17 07:34 97 Nasal Cannula 4.00 02/26/17 07:00 100 02/26/17 06:00 106 02/26/17 05:00 110 02/26/17 04:00 102 02/26/17 03:54 94 Nasal Cannula 4.00 02/26/17 03:54 98.7 99 20 97/62 (74) 94 02/26/17 03:00 99 02/26/17 02:00 113 02/26/17 00:00 95 Nasal Cannula 4.00 02/26/17 00:00 109 02/26/17 00:00 98.7 109 20 108/72 (84) 95 02/25/17 23:00 106 02/25/17 22:00 116 02/25/17 21:31 94 Nasal Cannula 4.00 02/25/17 21:00 118 02/25/17 20:00 126 02/25/17 20:00 99.1 92 18 116/69 (85) 92 02/25/17 20:00 92 Nasal Cannula 4.00 02/25/17 19:00 92 02/25/17 18:18 97 02/25/17 17:23 96 02/25/17 16:00 94 02/25/17 15:00 95 Nasal Cannula 4.00 02/25/17 15:00 91 16 118/64 (82) 91 02/25/17 15:00 94 Labs: Laboratory Tests Test 02/26/17 10:55 White Blood Count 10.7 TH/MM3 (4.0-11.0) Red Blood Count 2.80 MIL/MM3 (4.50-5.90) Hemoglobin 9.8 GM/DL (13.0-17.0) Hematocrit 27.2 % (39.0-51.0) Mean Corpuscular Volume 97.0 FL (80.0-100.0) Mean Corpuscular Hemoglobin 34.9 PG (27.0-34.0) Mean Corpuscular Hemoglobin Concent 36.0 % (32.0-36.0) Red Cell Distribution Width 16.8 % (11.6-17.2) Platelet Count 85 TH/MM3 (150-450) Mean Platelet Volume 7.7 FL (7.0-11.0) Neutrophils (%) (Auto) 79.3 % (16.0-70.0) Lymphocytes (%) (Auto) 8.7 % (9.0-44.0) Monocytes (%) (Auto) 11.8 % (0.0-8.0) Eosinophils (%) (Auto) 0.1 % (0.0-4.0) Basophils (%) (Auto) 0.1 % (0.0-2.0) Neutrophils # (Auto) 8.5 TH/MM3 (1.8-7.7) Lymphocytes # (Auto) 0.9 TH/MM3 (1.0-4.8) Monocytes # (Auto) 1.3 TH/MM3 (0-0.9) Eosinophils # (Auto) 0.0 TH/MM3 (0-0.4) Basophils # (Auto) 0.0 TH/MM3 (0-0.2) CBC Comment AUTO DIFF Blood Urea Nitrogen 42 MG/DL (7-18) Creatinine 1.27 MG/DL (0.60-1.30) Random Glucose 129 MG/DL (74-106) Calcium Level 8.3 MG/DL (8.5-10.1) Magnesium Level 2.1 MG/DL (1.5-2.5) Sodium Level 135 MEQ/L (136-145) Potassium Level 4.1 MEQ/L (3.5-5.1) Chloride Level 99 MEQ/L (98-107) Carbon Dioxide Level 29.7 MEQ/L (21.0-32.0) Anion Gap 6 MEQ/L (5-15) Estimat Glomerular Filtration Rate 55 ML/MIN (>89) Result Diagram: 02/26/17 1055 02/26/17 1055 (1) Coronary artery disease (2) Thrombocytopenia (3) Severe aortic stenosis (4) Lupus (5) S/P AVR (aortic valve replacement) (6) S/P CABG x 2 Plan: on ASA plavix BB ,statin chest tube removed without difficultly continue pulm toileting wean 02 OOB , ambulate CM to eval for HHC at discharge (7) Afib Plan: IV amiodarone protocol BB mario score 4 Brittany Mo Feb 26, 2017 11:51
[2017-02-26 11:54] LABS: PLATELET ESTIMATE SMEAR LOW (NORMAL); PLATELET MORPHOLOGY NORMAL (NORMAL); SCAN/DIFF AUTO DIFF CONFIRMED
[2017-02-26 12:21] LABS: INDIRECT BILIRUBIN 0.9 MG/DL (0.0-0.8); TOTAL BILIRUBIN ADULT 1.7 MG/DL (0.2-1.0)
[2017-02-26] MEDS ORDERED: MAGNESIUM SULFATE 1 GM PREMIX 100 ML IV ONE (13:00)
[2017-02-26] MEDS ORDERED: AMIODARONE INJ 150 MG in DEXTROSE 5% IN WATER 100ML INJ 97 ML IV ONE ×2 (13:02)
[2017-02-26] MEDS ORDERED: LACTATED RINGER'S 1000 ML INJ 1,000 ML IV ONE (13:49)
[2017-02-26] MEDS: SENNOSIDES 8.6 MG TAB PO SCH (21:00)
[2017-02-26] MEDS: TAMSULOSIN HCL 0.4 MG CAP PO SCH (21:32)
[2017-02-27] VITALS (27 sets, daily range): BP systolic 100–138; BP diastolic 66–80; PULSE 84–117; RESP 18–20; TEMP 97.1–98.5; O2SAT 91–98
--- NOTE | 2017-02-27 04:36 | RADRPT ---
EXAM DATE/TIME: 02/27/2017 03:41 [place] COMPARISON: CHEST SINGLE AP, February 24, 2017, 4:32. INDICATIONS : Chest tube removal rule out pneumothorax. MEDICAL HISTORY : None. SURGICAL HISTORY : CABG. ENCOUNTER: Subsequent ACUITY: 4 - 6 days PAIN SCORE: 0/10 LOCATION: Bilateral chest FINDINGS: Right central line tip in the distal superior vena cava. Interval removal of bilateral chest tubes. No evidence of pneumothorax. There is persisting consolidation in the left lower lung with loss of delineation of the entire left hemidiaphragm. Some patchy infiltrates in the infrahilar right lower lobe. Upper lungs are clear. Prior median sternotomy. Heart is mildly enlarged, stable. CONCLUSION: Persistent left lower lobe consolidation and right infrahilar infiltrates. Manuel Wilkinson MD on February 27, 2017 at 4:34 Board Certified Radiologist. This report was verified electronically.
[2017-02-27] MEDS: PANTOPRAZOLE SOD 40 MG DELAYED RELEASE TAB PO SCH (05:59)
[2017-02-27 06:55] LABS: AUTOMATED NEUTROPHIL # 4.6 TH/MM3 (1.8-7.7); EOSINOPHIL # 0.1 TH/MM3 (0-0.4); EOSINOPHIL % 0.7 % (0.0-4.0); HEMATOCRIT 25.2 % (39.0-51.0); LYMPH % 15.1 % (9.0-44.0); MEAN CELL VOLUME 98.7 FL (80.0-100.0); MEAN CORPUSCULAR HEMOGLOBIN 34.8 PG (27.0-34.0); MEAN CORPUSCULAR HGB CONC 35.3 % (32.0-36.0); MONO % 16.2 % (0.0-8.0); PLATELET COUNT 65 TH/MM3 (150-450); RED BLOOD COUNT 2.55 MIL/MM3 (4.50-5.90); RED CELL DISTRIBUTION WIDTH 16.6 % (11.6-17.2); WHITE BLOOD COUNT 6.8 TH/MM3 (4.0-11.0)
[2017-02-27 07:01] LABS: HEMO FLAGS AUTO DIFF
[2017-02-27 07:21] LABS: BICARBONATE 29.2 MEQ/L (21.0-32.0); MAGNESIUM 2.2 MG/DL (1.5-2.5); POTASSIUM 3.5 MEQ/L (3.5-5.1)
[2017-02-27] MEDS: INSULIN ASPART SUPPLEMENTAL SCALE SQ SCH ×4 (08:00→21:00)
[2017-02-27 08:10] LABS: SCAN/DIFF AUTO DIFF CONFIRMED
[2017-02-27] MEDS: SODIUM CHLORIDE 0.9% FLUSH 10 ML FLUSH IV FLUSH SCH ×2 (09:00→21:00)
[2017-02-27] MEDS: MAGNESIUM HYDROXIDE SUSP 30 ML CUP PO SCH (09:00)
[2017-02-27] MEDS: POLYETHYLENE GLYCOL 17 GM PKG PO SCH (09:00)
[2017-02-27] MEDS: METOPROLOL TARTRATE 25 MG TAB PO SCH ×2 (09:06→21:01)
[2017-02-27] MEDS: METOCLOPRAMIDE HCL 10 MG/2 ML VIAL IV PUSH SCH ×4 (09:06→21:00)
[2017-02-27] MEDS: CLOPIDOGREL 75 MG TAB PO SCH (09:06)
[2017-02-27] MEDS: DOCUSATE SODIUM 100 MG CAP PO SCH ×2 (09:06→21:00)
[2017-02-27] MEDS: MULTIVITAMINS/MINERALS THERAPEUTIC TAB PO SCH (09:06)
[2017-02-27] MEDS: ASPIRIN 81 MG CHEW TAB PO SCH (09:06)
[2017-02-27] MEDS: HYDROXYCHLOROQUINE SULFATE 200 MG TAB PO SCH (09:06)
[2017-02-27] MEDS ORDERED: AMIODARONE INJ 150 MG in DEXTROSE 5% IN WATER 100ML INJ 97 ML IV ONE ×2 (10:00)
--- NOTE | 2017-02-27 11:10 | PD.CAR.PN ---
CVT Progress Note Subjective/Hospital Course: 77-year-old male, patient of Dr. Pineda, also Dr. Le, Dr. Morris Alexandre who has been having some shortness of breath and fatigue for the last 4- 5 months, has a history of aortic stenosis and has been followed on a regular basis by Dr. Pineda. He had a recent echocardiogram on January 09 which showed an ejection fraction of 60%, some grade 1 diastolic dysfunction. The left atrium was mildly dilated. The peak gradient for the aortic valve is 87 mmHg, mean gradient of 53, the valve consistent with severe aortic stenosis, mitral valve had some mild regurgitation and some mild tricuspid regurgitation. Right ventricular systolic pressures of 49 and also underwent heart catheterization 02/13/17 which showed 100% mid distal LAD and the RCA was 70% stenosed. He did right-sided heart cath which showed RA pressures of 8, PA pressure 28/14, wedge pressure 17. Cardiac output of 8, with an index of 3.7. Pt was electively admitted for surgery PAST MEDICAL HISTORY: Aortic stenosis, History of colon polyps, History of lupus and low platelets, Essential hypertension, Thrombocytopenia, Psoriasis, Psoriatic arthritis surgery 02/23 Procedure: 1. Coronary Artery Bypass Grafting x 2 with left internal mammary artery (NAVARRETE) to left anterior descending (LAD), reverse saphenous vein graft to the distal Right Coronary Artery (RCA) 2. Aortic Valve Replacement with 23mm Medtronic Mosaic Tissue Valve 3. Right Leg Endoscopic Vein [place] 4. Intraoperative Vein Mapping. 02/24 Doing well. Extubated ans tolerating Off of all gtts Transfer to CPCU Maintain CT Incentive spirometer 02/25 Hypotensive last pm. Clinically stable this morning Awaiting CPCU bed Maintain CT for another day 02/26 pt went into afib RVR last pm, start on amiodarone IV protocol mario v score 4 however pt has hx of chronic thrombocytopenia / PLT count has improved to 85 will need to discuss form of anticoagulation chest tube removed without difficulty on nasal cannula 02/27 pt remains in afib rate 110-115 additional IV amiodarone bolus given ./ discussed with Dr Pineda recommends consult with hematology /2 PLT 65 and chronic hx of thrombocytopenia continue ASA for now, await Heme recommendation on low dose BB DC CVC line later today will need HHC and PT at discharge Objective: GENERAL: SKIN: Warm and dry. 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 EYES: No scleral icterus. No injection or drainage. NECK: Supple, trachea midline. No JVD or lymphadenopathy. CARDIOVASCULAR: irregular rate rate and rhythm without murmurs, gallops, or rubs. RESPIRATORY: Breath sounds equal bilaterally. No accessory muscle use. diminished left lower lobe GASTROINTESTINAL: Abdomen soft, non-tender, nondistended. MUSCULOSKELETAL: No cyanosis, or edema. BACK: Nontender without obvious deformity. No CVA tenderness. Vital Signs Date Time Temp Pulse Resp B/P (MAP) Pulse Ox O2 Delivery O2 Flow Rate FiO2 02/27/17 10:13 110 99/54 02/27/17 08:02 98 02/27/17 07:59 98 Nasal Cannula 2.00 02/27/17 07:54 97.7 100 20 104/66 (79) 98 02/27/17 07:00 110 02/27/17 06:00 117 02/27/17 05:00 98 02/27/17 04:00 104 02/27/17 03:00 98.5 109 20 102/72 (82) 95 02/27/17 03:00 91 Nasal Cannula 2.00 02/27/17 03:00 110 02/27/17 02:00 108 02/27/17 01:36 98 100/68 02/27/17 01:00 103 02/27/17 00:00 91 Nasal Cannula 2.00 02/27/17 00:00 98.0 107 20 100/68 (79) 91 02/27/17 00:00 102 02/26/17 23:00 106 02/26/17 22:00 98 02/26/17 21:00 98 02/26/17 20:00 100 02/26/17 20:00 98.6 89 20 133/80 (97) 95 02/26/17 20:00 95 Nasal Cannula 2.00 02/26/17 19:00 91 02/26/17 18:00 100 02/26/17 17:00 88 02/26/17 16:01 98.2 99 18 97/63 (74) 99 02/26/17 16:00 100 02/26/17 15:53 95 Nasal Cannula 1.50 02/26/17 15:30 98.2 99 18 97/63 (74) 95 02/26/17 15:00 90 02/26/17 14:00 100 02/26/17 13:02 98 102/53 02/26/17 13:00 90 02/26/17 12:00 95 Nasal Cannula 3.00 02/26/17 12:00 98.1 87 16 83/54 (64) 95 02/26/17 12:00 86 Labs: Laboratory Tests Test 02/27/17 06:20 White Blood Count 6.8 TH/MM3 (4.0-11.0) Red Blood Count 2.55 MIL/MM3 (4.50-5.90) Hemoglobin 8.9 GM/DL (13.0-17.0) Hematocrit 25.2 % (39.0-51.0) Mean Corpuscular Volume 98.7 FL (80.0-100.0) Mean Corpuscular Hemoglobin 34.8 PG (27.0-34.0) Mean Corpuscular Hemoglobin Concent 35.3 % (32.0-36.0) Red Cell Distribution Width 16.6 % (11.6-17.2) Platelet Count 65 TH/MM3 (150-450) Mean Platelet Volume 8.0 FL (7.0-11.0) Neutrophils (%) (Auto) 68.0 % (16.0-70.0) Lymphocytes (%) (Auto) 15.1 % (9.0-44.0) Monocytes (%) (Auto) 16.2 % (0.0-8.0) Eosinophils (%) (Auto) 0.7 % (0.0-4.0) Basophils (%) (Auto) 0.0 % (0.0-2.0) Neutrophils # (Auto) 4.6 TH/MM3 (1.8-7.7) Lymphocytes # (Auto) 1.0 TH/MM3 (1.0-4.8) Monocytes # (Auto) 1.1 TH/MM3 (0-0.9) Eosinophils # (Auto) 0.1 TH/MM3 (0-0.4) Basophils # (Auto) 0.0 TH/MM3 (0-0.2) CBC Comment AUTO DIFF Differential Comment AUTO DIFF CONFIRMED Blood Urea Nitrogen 36 MG/DL (7-18) Creatinine 1.09 MG/DL (0.60-1.30) Random Glucose 138 MG/DL (74-106) Calcium Level 7.8 MG/DL (8.5-10.1) Magnesium Level 2.2 MG/DL (1.5-2.5) Sodium Level 132 MEQ/L (136-145) Potassium Level 3.5 MEQ/L (3.5-5.1) Chloride Level 97 MEQ/L (98-107) Carbon Dioxide Level 29.2 MEQ/L (21.0-32.0) Anion Gap 6 MEQ/L (5-15) Estimat Glomerular Filtration Rate 66 ML/MIN (>89) Result Diagram: 02/27/1761902/27/17619 (1) Coronary artery disease (2) Thrombocytopenia Plan: consult hematolgy dc plavix, hold ASA for PLT < 70K (3) Severe aortic stenosis (4) Lupus (5) S/P AVR (aortic valve replacement) (6) S/P CABG x 2 Plan: on ASA BB ,statin continue pulm toileting wean 02 OOB , ambulate CM to eval for HHC at discharge / with pt (7) Afib Plan: IV amiodarone protocol / change to po amiodarone BB mario score 4 Brittany Mo Feb 27, 2017 11:10
[2017-02-27] MEDS: AMIODARONE 200 MG TAB PO SCH ×2 (13:59→21:01)
[2017-02-27] MEDS: SENNOSIDES 8.6 MG TAB PO SCH (21:00)
[2017-02-27] MEDS: ATORVASTATIN 40 MG TAB PO SCH (21:01)
[2017-02-27] MEDS: TAMSULOSIN HCL 0.4 MG CAP PO SCH (21:01)
[2017-02-28] VITALS (27 sets, daily range): BP systolic 85–130; BP diastolic 50–72; PULSE 64–116; RESP 16–20; TEMP 97.6–98.3; O2SAT 93–96
[2017-02-28] MEDS: PANTOPRAZOLE SOD 40 MG DELAYED RELEASE TAB PO SCH (06:11)
--- NOTE | 2017-02-28 06:47 | MB ---
cc: TEJINDER HERNANDEZ DATE OF CONSULTATION 02/27/2017 DATE OF 1940 REASON FOR CONSULTATION Patient is status post aortic valve replacement and CABG x2 who has thrombocytopenia. HISTORY OF PRESENT ILLNESS This is a 77-year-old male who has a past medical history of hypertension, hyperlipidemia, history of lupus and aortic stenosis who was admitted to the hospital for aortic valve repair. He also underwent coronary artery bypass grafting x2 with left internal mammary artery NAVARRETE to left anterior descending, reverse saphenous vein graft to the right distal coronary artery. His aortic valve was replaced with a 23 mm Medtronic mosaic tissue valve. He had a right leg endoscopic vein harvest. The patient is currently recovering from his surgery. The patient on admission had thrombocytopenia with a platelet count of 113,000, his platelet count has dropped to 65,000. He has a history of lupus. During this admission, he has not had any excessive bleeding. No petechiae or bruising. He does not have any lower extremity edema or pain. He is recovering from his surgery. The patient is currently sitting up in a chair and watching TV. He appears comfortable and in no distress. He states that he was diagnosed with thrombocytopenia many years ago. He has a history of lupus. He has never seen a deskidding machine operator before, but apparently does follow with a assistant product manager who informed him of his thrombocytopenia. He states that normally his platelet count is in the 80,000 range. However, his platelet count has fluctuated in the past. He has no known history of splenomegaly. No hepatomegaly. No history of liver disease. He does not admit to drinking alcohol excessively. He has never had a bone marrow biopsy. 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 He quit smoking many years ago. He does not drink alcohol. No illicit drug use. REVIEW OF SYSTEMS A comprehensive review of systems was completed which is negative except as described in the HPI. PAST MEDICAL HISTORY 1. Hypertension 2. Hyperlipidemia 3. Lupus 4. Thrombocytopenia 5. BPH 6. aortic stenosis PAST SURGICAL HISTORY 1. CABG 2. Aortic stenosis repair. MEDICATIONS 1. Amiodarone 400 mg p.o. b.i.d. 2. Atorvastatin 40 mg p.o. q.h.s. 3. Sliding scale insulin 4. Metoprolol 25 mg p.o. b.i.d. 5. Multivitamins one tablet p.o. daily 6. Milk of magnesia 30 cc p.o. daily 7. Polyethylene glycol 17 grams p.o. daily 8. Hydroxychloroquine 9. Plaquenil 200 mg p.o. daily 10. Docusate 100 mg p.o. b.i.d. 11. Sennosides 8.6 mg p.o. q.h.s. 12. Tamsulosin 0.4 mg p.o. q.h.s. 13. Alprazolam 0.25 mg p.o. q.8 h. 14. Aspirin 81 mg daily 15. Plavix has been stopped 16. Reglan 10 mg IV as needed 17. [place] 5/325 p.o. q3 hours p.r.n. 18. Zofran p.r.n. ALLERGIES He does not have any known allergies. FAMILY HISTORY Reviewed on this admission. It is noncontributory to his current clinical status. SOCIAL HISTORY He lives in [place]. He is retired. 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 He quit smoking many years ago. He rarely drinks alcohol. No illicit drug use. PHYSICAL EXAMINATION VITAL SIGNS: Blood pressure is 138/72, pulse is in the 80s, temperature is 97.8, O2 sats are 99% on room air. GENERAL: An elderly male who is not in apparent distress. HEENT: Pupils are equal, round, reactive to light. EOMI. No oral thrush. No oral lesions. NECK: Supple. No JVD, no bruits. No lymphadenopathy. CHEST: Clear to auscultation bilaterally. CARDIAC: S1-S2 regular rate and rhythm. A surgical scar is well-healing. ABDOMEN: Soft, nontender, nondistended, unable to palpate liver or spleen due to obesity. EXTREMITIES: Without any edema, erythema or cyanosis. SKIN: Without any petechiae lesion or bruises. NEUROLOGIC: No focal deficits. PSYCHAITRIC: Mood and affect is appropriate. LABORATORY DATA WBC 6.8, hemoglobin is 8.9, platelet count 65,000. Serum chemistries show sodium 132, potassium 3.5, chloride 97, CO2 29.2, BUN is 36, creatinine is 1.09, GFR 66, calcium is 7.8, magnesium is 2.2, direct bilirubin is 0.8, total bilirubin is 0.7, AST is 249, ALT 67, alk phos is 50, total protein is 5.6, albumin is 2.4. IMAGING STUDIES Chest x-ray was reviewed which shows a left lower lobe consolidation and right infrahilar infiltrate. ASSESSMENT/PLAN This is a 77-year-old male who has a past medical history of hypertension, hyperlipidemia, BPH, lupus currently on Plaquenil, history of thrombocytopenia who recently underwent aortic valve repair and CABG x2. Hematology has been consulted for thrombocytopenia and anemia. 1. Acute thrombocytopenia. After a long discussion with the patient, it appears that he has a chronic history of thrombocytopenia with platelet count ranging from 60,000-110,000. He states that mostly his platelet count is somewhere between 70-80,000. He has a history of lupus and his thrombocytopenia goes along with lupus. Patients with lupus can develop thrombocytopenia. He is also on Plaquenil. He has never seen a deskidding machine operator before. It is unclear whether he has any kind of liver dysfunction in the past. However his AST is elevated at 294 and ALT 67. He is also postop. Patient's after cardiac surgery do experience thrombocytopenia and I believe that this is the reason why his platelet count had dropped somewhat. This does not appear to be heparin-induced thrombocytopenia and based on the HIT score, probability of heparin-induced thrombocytopenia is low. I will review his peripheral smear. He can continue Plavix and aspirin as long as his platelet count is greater that 50,000. Obtain DIC panel. Stop Plaquenil for now. 2. Anemia which appears to be post op. We will obtain anemia studies. His total bilirubin is elevated with slight elevation of direct bilirubin. We need to rule out underlying hemolysis. We will repeat bilirubin components, check LDH and haptoglobin. We will also obtain a direct Moody test. Check B12 and folate studies as well as iron studies. Obtain a stool Hemoccult. 3. History of lupus currently on Plaquenil. 4. Aortic valve repair 5. CABG x2. Thank you for allowing me to participate in the care of this patient. I will continue to follow this patient along. MD ELLEN Hough/BRUNO /12:32 AM /6:26 AM MTDBridgette
[2017-02-28 06:49] LABS: HEMATOCRIT 23.9 % (39.0-51.0); MEAN CELL VOLUME 98.1 FL (80.0-100.0); MEAN CORPUSCULAR HGB CONC 35.7 % (32.0-36.0); PLATELET COUNT 68 TH/MM3 (150-450); RED BLOOD COUNT 2.44 MIL/MM3 (4.50-5.90); WHITE BLOOD COUNT 5.4 TH/MM3 (4.0-11.0)
[2017-02-28 06:53] LABS: REVIEW FLAG FINAL
[2017-02-28 07:08] LABS: ALT (GPT) 62 U/L (12-78); AST (GOT) 174 U/L (15-37); LDH SERUM 491 U/L (87-241)
[2017-02-28 07:19] LABS: INTERNATIONAL NORMALIZED RATIO 1.2 RATIO; PROTHROMBIN TIME - PATIENT 12.5 SEC (9.8-11.6)
[2017-02-28 07:33] LABS: ALKALINE PHOSPHATASE 63 U/L (45-117); FERRITIN 774 NG/ML (26-388); INDIRECT BILIRUBIN 0.9 MG/DL (0.0-0.8); TOTAL BILIRUBIN ADULT 1.6 MG/DL (0.2-1.0); TRANSFERRIN IRON PROFILE 143 MG/DL (200-360)
[2017-02-28] MEDS: INSULIN ASPART SUPPLEMENTAL SCALE SQ SCH (08:00)
[2017-02-28] MEDS: METOCLOPRAMIDE HCL 10 MG/2 ML VIAL IV PUSH SCH ×4 (08:40→21:00)
[2017-02-28] MEDS: MULTIVITAMINS/MINERALS THERAPEUTIC TAB PO SCH (08:40)
[2017-02-28] MEDS: METOPROLOL TARTRATE 25 MG TAB PO SCH ×2 (08:40→22:04)
[2017-02-28] MEDS: ASPIRIN 81 MG CHEW TAB PO SCH (08:41)
[2017-02-28] MEDS: AMIODARONE 200 MG TAB PO SCH ×2 (08:41→22:04)
[2017-02-28] MEDS: SODIUM CHLORIDE 0.9% FLUSH 10 ML FLUSH IV FLUSH SCH ×2 (08:41→21:00)
[2017-02-28] MEDS: DOCUSATE SODIUM 100 MG CAP PO SCH ×2 (08:42→21:00)
[2017-02-28] MEDS: MAGNESIUM HYDROXIDE SUSP 30 ML CUP PO SCH (08:52)
[2017-02-28] MEDS: POLYETHYLENE GLYCOL 17 GM PKG PO SCH (08:53)
--- NOTE | 2017-02-28 09:28 | RADRPT ---
EXAM DATE/TIME: 02/28/2017 07:54 [facility] COMPARISON: No previous studies available for comparison. INDICATIONS : Thrombocytopenia. MEDICAL HISTORY : Hypertension. Thrombocytopenia. Hyperlipidemia. Lupus. Aortic stenosis. BPH. SURGICAL HISTORY : Aortic valve replacement. CABG x 2. ENCOUNTER: Initial ACUITY: 1 day PAIN SCORE: 0/10 LOCATION: Abdomen. MEASUREMENTS: LIVER: 20.1 cm length COMMON DUCT: 4 mm RIGHT KIDNEY: 10.3 x 5.0 x 4.9 cm LEFT KIDNEY: 11.9 x 5.4 x 5.1 cm SPLEEN: 12.1 cm length AORTA: Non-visualized FINDINGS: LIVER: The liver is enlarged and demonstrates a heterogeneous hyperechoic texture. Focal nodularity is seen along the capsular margin. There is no evidence of biliary duct dilatation. There are no focal masses . Portal vein is patent. Minimal fluid is seen along the liver margin. COMMON DUCT: No intraluminal mass or stone visualized. GALLBLADDER: Status post cholecystectomy. PANCREAS: Nonvisualized RIGHT KIDNEY: No hydronephrosis, stone or mass. LEFT KIDNEY: No hydronephrosis, stone or mass. SPLEEN: No focal lesion. AORTA: Nonvisualized IVC: Nonvisualized CONCLUSION: 1. Hepatomegaly with abnormal echo texture characteristic of chronic parenchymal liver disease. 2. No evidence of focal hepatic lesion or biliary duct dilatation. 3. Status post cholecystectomy. 4. Trace ascites. Favian Gardner MD on February 28, 2017 at 9:23 Board Certified Radiologist. This report was verified electronically.
[2017-02-28 12:02] LABS: POTASSIUM 3.5 MEQ/L (3.5-5.1)
--- NOTE | 2017-02-28 12:55 | PD.CAR.PN ---
CVT Progress Note Subjective/Hospital Course: 77-year-old male, patient of Dr. Pineda, also Dr. Le, Dr. Morris Alexandre who has been having some shortness of breath and fatigue for the last 4- 5 months, has a history of aortic stenosis and has been followed on a regular basis by Dr. Pineda. He had a recent echocardiogram on January 09 which showed an ejection fraction of 60%, some grade 1 diastolic dysfunction. The left atrium was mildly dilated. The peak gradient for the aortic valve is 87 mmHg, mean gradient of 53, the valve consistent with severe aortic stenosis, mitral valve had some mild regurgitation and some mild tricuspid regurgitation. Right ventricular systolic pressures of 49 and also underwent heart catheterization 02/13/17 which showed 100% mid distal LAD and the RCA was 70% stenosed. He did right-sided heart cath which showed RA pressures of 8, PA pressure 28/14, wedge pressure 17. Cardiac output of 8, with an index of 3.7. Pt was electively admitted for surgery PAST MEDICAL HISTORY: Aortic stenosis, History of colon polyps, History of lupus and low platelets, Essential hypertension, Thrombocytopenia, Psoriasis, Psoriatic arthritis surgery 02/23 Procedure: 1. Coronary Artery Bypass Grafting x 2 with left internal mammary artery (NAVARRETE) to left anterior descending (LAD), reverse saphenous vein graft to the distal Right Coronary Artery (RCA) 2. Aortic Valve Replacement with 23mm Medtronic Mosaic Tissue Valve 3. Right Leg Endoscopic Vein [place] 4. Intraoperative Vein Mapping. 02/24 Doing well. Extubated ans tolerating Off of all gtts Transfer to CPCU Maintain CT Incentive spirometer 02/25 Hypotensive last pm. Clinically stable this morning Awaiting CPCU bed Maintain CT for another day 02/26 pt went into afib RVR last pm, start on amiodarone IV protocol mario v score 4 however pt has hx of chronic thrombocytopenia / PLT count has improved to 85 will need to discuss form of anticoagulation chest tube removed without difficulty on nasal cannula 02/27 pt remains in afib rate 110-115 additional IV amiodarone bolus given ./ discussed with Dr Pineda recommends consult with hematology / PLT 65 and chronic hx of thrombocytopenia continue ASA for now, await Heme recommendation on low dose BB DC CVC line later today will need HHC and PT at discharge 02/28 remains in afib rate improved appreciate input from hematolgy ok for ASA plt > 50K start heparin gtt , monitor HGB and platelets / if stable then will start po eliquis on dc f/u CBC closely as outpt discussed with pt with Dr Siegel Objective: GENERAL: SKIN: Warm and dry. prevena dressing to chest , HEAD: Normocephalic. EYES: No scleral icterus. No injection or drainage. NECK: Supple, trachea midline. No JVD or lymphadenopathy. CARDIOVASCULAR: Regular rate and rhythm without murmurs, gallops, or rubs. RESPIRATORY: Breath sounds equal bilaterally. No accessory muscle use. GASTROINTESTINAL: Abdomen soft, non-tender, nondistended. MUSCULOSKELETAL: No cyanosis, or edema. BACK: Nontender without obvious deformity. No CVA tenderness. Vital Signs Date Time Temp Pulse Resp B/P (MAP) Pulse Ox O2 Delivery O2 Flow Rate FiO2 02/28/17 10:00 108 02/28/17 09:00 106 02/28/17 08:00 104 02/28/17 07:30 97.6 104 18 102/57 (72) 94 02/28/17 07:00 110 02/28/17 06:00 100 02/28/17 05:00 92 02/28/17 04:00 105 02/28/17 03:00 103 02/28/17 03:00 97.8 102 20 95/62 (73) 94 02/28/17 02:00 103 02/28/17 01:00 95 02/28/17 00:00 100 02/27/17 23:00 97.8 104 18 123/80 (94) 95 02/27/17 23:00 96 02/27/17 22:26 96 Nasal Cannula 2.00 02/27/17 22:00 94 02/27/17 21:00 112 02/27/17 20:00 104 02/27/17 19:00 93 Room Air 02/27/17 19:00 94 02/27/17 19:00 98.1 106 18 118/76 (90) 93 02/27/17 18:00 100 02/27/17 17:00 98 02/27/17 16:00 84 02/27/17 15:30 99 Room Air 02/27/17 15:30 97.8 98 20 138/72 (94) 98 02/27/17 15:00 90 02/27/17 14:00 96 02/27/17 13:00 98 Labs: Laboratory Tests Test 02/28/17 06:30 White Blood Count 5.4 TH/MM3 (4.0-11.0) Red Blood Count 2.44 MIL/MM3 (4.50-5.90) Hemoglobin 8.5 GM/DL (13.0-17.0) Hematocrit 23.9 % (39.0-51.0) Mean Corpuscular Volume 98.1 FL (80.0-100.0) Mean Corpuscular Hemoglobin 35.0 PG (27.0-34.0) Mean Corpuscular Hemoglobin Concent 35.7 % (32.0-36.0) Red Cell Distribution Width 16.0 % (11.6-17.2) Platelet Count 68 TH/MM3 (150-450) Mean Platelet Volume 7.5 FL (7.0-11.0) Blood Smear Pathologist Review Haptoglobin 12 MG/DL (30-200) Prothrombin Time 12.5 SEC (9.8-11.6) Prothromb Time International Ratio 1.2 RATIO Fibrinogen 341 mg/dL (227-377) Blood Urea Nitrogen 32 MG/DL (7-18) Creatinine 1.10 MG/DL (0.60-1.30) Random Glucose 119 MG/DL (74-106) Calcium Level 7.5 MG/DL (8.5-10.1) Magnesium Level 2.0 MG/DL (1.5-2.5) Sodium Level 134 MEQ/L (136-145) Potassium Level 3.5 MEQ/L (3.5-5.1) Chloride Level 99 MEQ/L (98-107) Carbon Dioxide Level 29.0 MEQ/L (21.0-32.0) Anion Gap 6 MEQ/L (5-15) Estimat Glomerular Filtration Rate 65 ML/MIN (>89) Iron Level 29 MCG/DL (65-175) Total Iron Binding Capacity 200 MCG/DL (250-450) Percent Iron Saturation 14.5 % (20-50) Ferritin 774 NG/ML (26-388) Total Bilirubin 1.6 MG/DL (0.2-1.0) Direct Bilirubin 0.7 MG/DL (0.0-0.2) Indirect Bilirubin 0.9 MG/DL (0.0-0.8) Aspartate Amino Transf (AST/SGOT) 174 U/L (15-37) Alanine Aminotransferase (ALT/SGPT) 62 U/L (12-78) Alkaline Phosphatase 63 U/L (45-117) Lactate Dehydrogenase 491 U/L (87-241) Total Protein 5.5 GM/DL (6.4-8.2) Albumin 2.2 GM/DL (3.4-5.0) Vitamin B12 Level 1357 PG/ML (193-986) Hepatitis B Surface Antigen NEGATIVE (NEGATIVE) Hepatitis B Core IgM Antibody NEGATIVE (NEGATIVE) Hepatitis C Antibody NEGATIVE (NEGATIVE) Result Diagram: 02/28/1762902/28/17629 (1) Coronary artery disease (2) Thrombocytopenia Plan: hematology following hold ASA for PLT < 50K start Heparin gtt and monitor labs, if stable then ok to start eliquis / discussed with Dr Heredia and Dr Siegel (3) Severe aortic stenosis (4) Lupus (5) S/P AVR (aortic valve replacement) (6) S/P CABG x 2 Plan: on ASA BB ,statin continue pulm toileting wean 02 OOB , ambulate CM to eval for HHC at discharge / with pt (7) Afib Plan: IV amiodarone protocol / change to po amiodarone BB mario score 4 Brittany Mo Feb 28, 2017 12:55
--- NOTE | 2017-02-28 13:16 | PD.ONC.PN ---
Subjective Subjective Remarks Afebrile overnight. Patient feels fatigued today. Reports he stayed up late watching TV last night. Otherwise without complaints. Objective Data Date Time Temp Pulse Resp B/P (MAP) Pulse Ox O2 Delivery O2 Flow Rate FiO2 02/28/17 10:00 108 02/28/17 09:00 106 02/28/17 08:00 104 02/28/17 07:30 97.6 104 18 102/57 (72) 94 02/28/17 07:00 110 02/28/17 06:00 100 02/28/17 05:00 92 02/28/17 04:00 105 02/28/17 03:00 103 02/28/17 03:00 97.8 102 20 95/62 (73) 94 02/28/17 02:00 103 02/28/17 01:00 95 02/28/17 00:00 100 02/27/17 23:00 97.8 104 18 123/80 (94) 95 02/27/17 23:00 96 02/27/17 22:26 96 Nasal Cannula 2.00 02/27/17 22:00 94 02/27/17 21:00 112 02/27/17 20:00 104 02/27/17 19:00 93 Room Air 02/27/17 19:00 94 02/27/17 19:00 98.1 106 18 118/76 (90) 93 02/27/17 18:00 100 02/27/17 17:00 98 02/27/17 16:00 84 02/27/17 15:30 99 Room Air 02/27/17 15:30 97.8 98 20 138/72 (94) 98 02/27/17 15:00 90 02/27/17 14:00 96 02/28/17 02/28/17 02/28/17 07:00 15:00 23:00 Intake Total 700 ml Output Total 350 ml Balance 350 ml Result Diagram: 02/28/1762902/28/17629 Laboratory Results Laboratory Tests Test 02/28/17 06:30 White Blood Count 5.4 TH/MM3 Red Blood Count 2.44 MIL/MM3 Hemoglobin 8.5 GM/DL Hematocrit 23.9 % Mean Corpuscular Volume 98.1 FL Mean Corpuscular Hemoglobin 35.0 PG Mean Corpuscular Hemoglobin Concent 35.7 % Red Cell Distribution Width 16.0 % Platelet Count 68 TH/MM3 Mean Platelet Volume 7.5 FL Blood Smear Pathologist Review Haptoglobin 12 MG/DL Prothrombin Time 12.5 SEC Prothromb Time International Ratio 1.2 RATIO Fibrinogen 341 mg/dL Blood Urea Nitrogen 32 MG/DL Creatinine 1.10 MG/DL Random Glucose 119 MG/DL Calcium Level 7.5 MG/DL Magnesium Level 2.0 MG/DL Sodium Level 134 MEQ/L Potassium Level 3.5 MEQ/L Chloride Level 99 MEQ/L Carbon Dioxide Level 29.0 MEQ/L Anion Gap 6 MEQ/L Estimat Glomerular Filtration Rate 65 ML/MIN Iron Level 29 MCG/DL Total Iron Binding Capacity 200 MCG/DL Percent Iron Saturation 14.5 % Ferritin 774 NG/ML Total Bilirubin 1.6 MG/DL Direct Bilirubin 0.7 MG/DL Indirect Bilirubin 0.9 MG/DL Aspartate Amino Transf (AST/SGOT) 174 U/L [place] Aminotransferase (ALT/SGPT) 62 U/L Alkaline Phosphatase 63 U/L Lactate Dehydrogenase 491 U/L Total Protein 5.5 GM/DL Albumin 2.2 GM/DL Vitamin B12 Level 1357 PG/ML Hepatitis B Surface Antigen NEGATIVE Hepatitis B Core IgM Antibody NEGATIVE Hepatitis C Antibody NEGATIVE Imaging Studies Last 24 hours Impressions Abdomen Ultrasound 02/28/17 0600 Signed Impressions: Service Date/Time: Tuesday, February 28, 2017 07:54 - CONCLUSION: 1. Hepatomegaly with abnormal echo texture characteristic of chronic parenchymal liver disease. 2. No evidence of focal hepatic lesion or biliary duct dilatation. 3. Status post cholecystectomy. 4. Trace ascites. Favian Gardner MD Administered Medications Medications (Trade) Dose Ordered Sig/Marie Route PRN Reason Start Time Stop Time Status Last Admin Dose Admin Sodium Chloride (NS Flush) 2 ml BID IV FLUSH 02/23/17 21:00 02/28/17 08:41 Aspirin (Aspirin Chew) 81 mg DAILY PO 02/24/17 09:00 02/28/17 08:41 Pantoprazole Sodium (Protonix) 40 mg DAILY@06 PO 02/24/17 06:00 02/28/17 06:11 Metoclopramide HCl (Reglan Inj) 10 mg ACHS IV PUSH 02/23/17 17:00 02/28/17 08:40 Acetaminophen/ Hydrocodone Bitart ([place] 5-325 Mg) 1 tab Q3H PRN PO PAIN 1-5 WHEN TOLERATING PO 02/23/17 13:30 02/24/17 04:09 Docusate Sodium (Colace) 100 mg BID PO 02/24/17 21:00 02/27/17 09:06 Multivitamins/ Minerals Therapeutic (Theragran M Tab) 1 tab DAILY PO 02/25/17 09:00 02/28/17 08:40 Magnesium Hydroxide (Milk Of Magnjuhi Liq) 30 ml DAILY PO 02/25/17 09:00 02/26/17 10:38 Polyethylene Glycol (Miralax) 17 gm DAILY PO 02/25/17 09:00 02/26/17 10:38 Sennosides (Senokot) 8.6 mg HS PO 02/24/17 21:00 02/25/17 21:16 Tamsulosin HCl (Flomax) 0.4 mg HS PO 02/24/17 21:00 02/27/17 21:01 Metoprolol Tartrate (Lopressor) 25 mg BID PO 02/26/17 09:00 02/28/17 08:40 Atorvastatin Calcium (Lipitor) 40 mg HS PO 02/26/17 21:00 02/27/17 21:01 Amiodarone HCl (Cordarone) 400 mg Q12HR PO 02/27/17 14:00 02/28/17 08:41 Objective Remarks GENERAL: Elderly male sitting up in bed in [facility]. SKIN: Warm and dry. HEAD: Normocephalic. EYES: No injection or drainage. NECK: Supple, trachea midline. CARDIOVASCULAR: Regular rate and rhythm RESPIRATORY: anterior casey clear. GASTROINTESTINAL: Abdomen soft, non-tender, nondistended. EXTREMITIES: No cyanosis NEUROLOGICAL: awake and alert, normal speech. moving all extremities. Assessment/Plan Problem List: (1) Thrombocytopenia ICD Codes: D69.6 - Thrombocytopenia, unspecified Plan: on admission had thrombocytopenia with a platelet count of 113,000, his platelet count has dropped to 65,000. --patient reports platelet count baseline is in the 80,000 range. --no known history of splenomegaly. --has never had a bone marrow biopsy. --has a history of lupus and his thrombocytopenia goes along with lupus. Patients with lupus can develop thrombocytopenia. Could also be due to Plaquenil. --Plaquenil on hold--last dose given 02/27 --does not appear to be heparin-induced thrombocytopenia and based on the HIT score, probability of heparin-induced thrombocytopenia is low. --peripheral smear pending --continue aspirin as long as his platelet count is greater that 50,000. (2) Macrocytic anemia ICD Codes: D53.9 - Nutritional anemia, unspecified Plan: --appears to be post op. --haptoglobin low, LDH elevated, consistent with hemolysis. indirect bilirubin remains only slightly elevated --direct Moody test negative. -- B12 elevated --serum iron and % saturation are low, but ferritin is elevated, more consistent with anemia of chronic disease or a mixed picture. --stool Hemoccult pending. (3) Afib ICD Codes: I48.91 - Unspecified atrial fibrillation Plan: --on heparin gtt Assessment 77y/o male, admitted for AV replacement and now status post aortic valve replacement and CABG x2. Hematology consulted for thrombocytopenia. history of hypertension, hyperlipidemia, history of lupus (currently on Plaquenil) and aortic stenosis, BPH Plan 1. monitor CBC 2. hold Plaquenil 3. will trend LDH/haptoglobin. Attending Statement The exam, history, and the medical decision-making described in the above note were completed with the assistance of the mid-level provider. I reviewed and agree with the findings presented. I attest that I had a [id number] encounter with the patient on the same day, and personally performed and documented my assessment and findings in the medical record Chronic thrombocytopenia LDH high and Haptoglobin low peripheral smear does not show any RBC fragments diffficult to tell whether this is MAHA/TTP--very atypical ? chronic hemolysis--Hb low MIKE negative recheck peripheral smear in am will send for ADAMTS 13 activity hold any plasma exchange for now check daily coags and DIC panel repeat bilirubin components in am d/w Dr. Reed d/w rn o/n events reveiwed Jocelyn Knowles Feb 28, 2017 13:16 Rich Heredia MD Feb 28, 2017 22:59
[2017-02-28 14:37] LABS: APTT (PATIENT) 25.9 SEC (24.3-30.1); INTERNATIONAL NORMALIZED RATIO 1.2 RATIO
[2017-02-28] MEDS: HEPARIN-D5W 25,000 U/250 ML 250 ML IV PRN (14:55)
[2017-02-28] MEDS ORDERED: WALKER WHEELS/F1 MIS (15:42)
[2017-02-28] MEDS: SENNOSIDES 8.6 MG TAB PO SCH (21:00)
[2017-02-28] MEDS: TAMSULOSIN HCL 0.4 MG CAP PO SCH (22:04)
[2017-02-28] MEDS: ATORVASTATIN 40 MG TAB PO SCH (22:05)
[2017-02-28 22:13] LABS: APTT (PATIENT) 102.7 SEC (24.3-30.1)
[2017-03-01] VITALS (28 sets, daily range): BP systolic 92–130; BP diastolic 58–68; PULSE 72–112; RESP 18; TEMP 97.6–97.9; O2SAT 93–96
[2017-03-01 00:15] LABS: APTT (PATIENT) 53.7 SEC (24.3-30.1)
[2017-03-01 04:12] LABS: AUTOMATED NEUTROPHIL # 3.7 TH/MM3 (1.8-7.7); BASOPHIL % 0.1 % (0.0-2.0); EOSINOPHIL # 0.1 TH/MM3 (0-0.4); EOSINOPHIL % 1.3 % (0.0-4.0); HEMATOCRIT 26.6 % (39.0-51.0); LYMPHOCYTE # 0.9 TH/MM3 (1.0-4.8); MEAN CORPUSCULAR HEMOGLOBIN 34.9 PG (27.0-34.0); MEAN CORPUSCULAR HGB CONC 35.2 % (32.0-36.0); NEUT % 64.6 % (16.0-70.0); PLATELET COUNT 72 TH/MM3 (150-450); RED BLOOD COUNT 2.68 MIL/MM3 (4.50-5.90); RED CELL DISTRIBUTION WIDTH 15.8 % (11.6-17.2); WHITE BLOOD COUNT 5.7 TH/MM3 (4.0-11.0)
[2017-03-01 04:16] LABS: HEMO FLAGS AUTO DIFF
[2017-03-01 04:24] LABS: INTERNATIONAL NORMALIZED RATIO 1.2 RATIO; PROTHROMBIN TIME - PATIENT 12.6 SEC (9.8-11.6)
[2017-03-01 04:30] LABS: APTT (PATIENT) 93.1 SEC (24.3-30.1)
[2017-03-01] MEDS: PANTOPRAZOLE SOD 40 MG DELAYED RELEASE TAB PO SCH (05:51)
[2017-03-01] MEDS: HEPARIN-D5W 25,000 U/250 ML 250 ML IV PRN (05:55)
[2017-03-01] MEDS: ASPIRIN 81 MG CHEW TAB PO SCH (08:18)
[2017-03-01] MEDS: MULTIVITAMINS/MINERALS THERAPEUTIC TAB PO SCH (08:18)
[2017-03-01] MEDS: AMIODARONE 200 MG TAB PO SCH ×2 (08:18→20:26)
[2017-03-01] MEDS: METOCLOPRAMIDE HCL 10 MG/2 ML VIAL IV PUSH SCH (08:18)
[2017-03-01] MEDS: METOPROLOL TARTRATE 25 MG TAB PO SCH ×2 (08:18→20:26)
[2017-03-01] MEDS: POLYETHYLENE GLYCOL 17 GM PKG PO SCH (08:19)
[2017-03-01] MEDS: MAGNESIUM HYDROXIDE SUSP 30 ML CUP PO SCH (08:19)
[2017-03-01] MEDS: SODIUM CHLORIDE 0.9% FLUSH 10 ML FLUSH IV FLUSH SCH ×2 (08:19→20:26)
[2017-03-01] MEDS: DOCUSATE SODIUM 100 MG CAP PO SCH ×2 (08:20→20:26)
[2017-03-01 08:24] LABS: APTT (PATIENT) 49.5 SEC (24.3-30.1)
[2017-03-01 08:33] LABS: PLATELET ESTIMATE SMEAR LOW (NORMAL); PLATELET MORPHOLOGY NORMAL (NORMAL); POLYCHROMASIA 2.4 % (0.0-1.9); SCAN/DIFF AUTO DIFF CONFIRMED
[2017-03-01] MEDS ORDERED: MAGNESIUM SULFATE 1 GM PREMIX 100 ML IV ONE (10:30)
[2017-03-01] MEDS ORDERED: POTASSIUM CHLORIDE 20 MEQ CONTROLLED RELEASE TAB PO ONE (10:30)
[2017-03-01] MEDS ORDERED: POTASSIUM CHLORIDE 25 MEQ EFFERVESCENT TAB PO ONE (10:30)
--- NOTE | 2017-03-01 14:11 | PD.ONC.PN ---
Subjective Subjective Remarks Afebrile overnight. Patient eager to go home. Resting in room with . No bleeding. Objective Data Date Time Temp Pulse Resp B/P (MAP) Pulse Ox O2 Delivery O2 Flow Rate FiO2 03/01/17 13:00 94 03/01/17 12:00 90 03/01/17 11:46 97.6 90 18 96/63 (74) 96 03/01/17 11:00 101 03/01/17 10:00 105 03/01/17 09:00 106 03/01/17 08:00 101 03/01/17 07:41 97.6 108 18 92/68 (76) 96 03/01/17 07:00 112 03/01/17 06:00 102 03/01/17 05:00 108 03/01/17 04:00 90 03/01/17 03:00 97.9 99 18 99/58 (72) 93 03/01/17 03:00 83 03/01/17 02:00 94 03/01/17 01:00 90 03/01/17 00:00 83 02/28/17 23:00 82 02/28/17 23:00 97.9 85 18 90/50 (63) 93 02/28/17 22:00 104 02/28/17 21:00 102 02/28/17 20:03 95 02/28/17 20:00 116 02/28/17 19:00 100 02/28/17 19:00 97.8 104 18 129/72 (91) 94 02/28/17 18:00 94 02/28/17 17:00 90 02/28/17 16:00 90 02/28/17 15:30 98.3 106 16 130/69 (89) 94 02/28/17 15:00 108 03/01/17 03/01/17 03/01/17 07:00 15:00 23:00 Intake Total 848 ml Output Total 300 ml Balance 548 ml Result Diagram: 03/01/17 0345 02/28/17 0630 Laboratory Results Laboratory Tests Test 02/28/17 21:28 02/28/17 23:49 03/01/17 03:45 03/01/17 03:48 Activated Partial Thromboplast Time 102.7 SEC 53.7 SEC 93.1 SEC White Blood Count 5.7 TH/MM3 Red Blood Count 2.68 MIL/MM3 Hemoglobin 9.3 GM/DL Hematocrit 26.6 % Mean Corpuscular Volume 99.0 FL Mean Corpuscular Hemoglobin 34.9 PG Mean Corpuscular Hemoglobin Concent 35.2 % Red Cell Distribution Width 15.8 % Platelet Count 72 TH/MM3 Mean Platelet Volume 7.8 FL Neutrophils (%) (Auto) 64.6 % Lymphocytes (%) (Auto) 16.0 % Monocytes (%) (Auto) 18.0 % Eosinophils (%) (Auto) 1.3 % Basophils (%) (Auto) 0.1 % Neutrophils # (Auto) 3.7 TH/MM3 Lymphocytes # (Auto) 0.9 TH/MM3 Monocytes # (Auto) 1.0 TH/MM3 Eosinophils # (Auto) 0.1 TH/MM3 Basophils # (Auto) 0.0 TH/MM3 CBC Comment AUTO DIFF Differential Comment AUTO DIFF CONFIRMED Platelet Estimate LOW Platelet Morphology Comment NORMAL Polychromasia 2.4 % Blood Smear Pathologist Review Haptoglobin 12 MG/DL Prothrombin Time 12.6 SEC Prothromb Time International Ratio 1.2 RATIO Fibrinogen 361 mg/dL Lactate Dehydrogenase 506 U/L Test 03/01/17 07:23 03/01/17 13:41 Activated Partial Thromboplast Time 49.5 SEC Administered Medications Medications (Trade) Dose Ordered Sig/Marie Route PRN Reason Start Time Stop Time Status Last Admin Dose Admin Sodium Chloride (NS Flush) 2 ml BID IV FLUSH 02/23/17 21:00 03/01/17 08:19 Aspirin (Aspirin Chew) 81 mg DAILY PO 02/24/17 09:00 03/01/17 08:18 Pantoprazole Sodium (Protonix) 40 mg DAILY@06 PO 02/24/17 06:00 03/01/17 05:51 Acetaminophen/ Hydrocodone Bitart (Emmett 5-325 Mg) 1 tab Q3H PRN PO PAIN 1-5 WHEN TOLERATING PO 02/23/17 13:30 02/24/17 04:09 Docusate Sodium (Colace) 100 mg BID PO 02/24/17 21:00 02/27/17 09:06 Multivitamins/ Minerals Therapeutic (Theragran M Tab) 1 tab DAILY PO 02/25/17 09:00 03/01/17 08:18 Magnesium Hydroxide (Milk Of Magnesia Liq) 30 ml DAILY PO 02/25/17 09:00 12/11/17 10:38 Polyethylene Glycol (Miralax) 17 gm DAILY PO 02/25/17 09:00 02/26/17 10:38 Sennosides (Senokot) 8.6 mg HS PO 02/24/17 21:00 02/25/17 21:16 Tamsulosin HCl (Flomax) 0.4 mg HS PO 02/24/17 21:00 02/28/17 22:04 Metoprolol Tartrate (Lopressor) 25 mg BID PO 02/26/17 09:00 03/01/17 08:18 Atorvastatin Calcium (Lipitor) 40 mg HS PO 02/26/17 21:00 02/28/17 22:05 Heparin Sodium/ Dextrose 250 ml @ 18 mls/hr TITRATE PRN IV Coagulation Management 02/28/17 14:00 03/01/17 05:55 Objective Remarks GENERAL: Well-nourished, well-developed patient. SKIN: Warm and dry. HEAD: Normocephalic. EYES: No injection or drainage. NECK: Supple, trachea midline. CARDIOVASCULAR: +S1/S2 RESPIRATORY: ctab GASTROINTESTINAL: Abdomen soft, non-tender, nondistended. EXTREMITIES: No cyanosis NEUROLOGICAL: awake and alert, normal speech. Assessment/Plan Problem List: (1) Thrombocytopenia ICD Codes: D69.6 - Thrombocytopenia, unspecified Plan: --patient reporting h/o alcohol abuse. thrombocytopenia/low haptoglobin likely d/t underlying liver d/o rather than TTP or hemolysis. on admission had thrombocytopenia with a platelet count of 113,000, his platelet count has dropped to 65,000. --patient reports platelet count baseline is in the 80,000 range. --no known history of splenomegaly. --has never had a bone marrow biopsy. --has a history of lupus and his thrombocytopenia goes along with lupus. Patients with lupus can develop thrombocytopenia. Could also be due to Plaquenil. --Plaquenil on hold--last dose given 02/27 --does not appear to be heparin-induced thrombocytopenia and based on the HIT score, probability of heparin-induced thrombocytopenia is low. --peripheral smear pending --continue aspirin as long as his platelet count is greater that 50,000. (2) Macrocytic anemia ICD Codes: D53.9 - Nutritional anemia, unspecified Plan: --appears to be post op. --haptoglobin low likely d/t synthetic liver dysfunction rather than hemolysis. --direct Moody test negative. -- B12 elevated --serum iron and % saturation are low, but ferritin is elevated, more consistent with anemia of chronic disease or a mixed picture. (3) Afib ICD Codes: I48.91 - Unspecified atrial fibrillation Plan: --on heparin gtt Assessment 77y/o male, admitted for AV replacement and now status post aortic valve replacement and CABG x2. Hematology consulted for thrombocytopenia. history of hypertension, hyperlipidemia, history of lupus (currently on Plaquenil) and aortic stenosis, BPH Plan 1. patient now reporting a h/o alcohol abuse. expect that low haptoglobin and elevated LFTs are d/t poor synthetic liver function rather than hemolysis. 2. Patient reports a baseline platelet level of 60-80. if platelet count continues to trend upward tomorrow, would d/c home with follow up with Dr. Heredia in 4 weeks. 3. Face sheet faxed to new patient referrals. Attending Statement The exam, history, and the medical decision-making described in the above note were completed with the assistance of the mid-level provider. I reviewed and agree with the findings presented. I attest that I had a [id number] encounter with the patient on the same day, and personally performed and documented my assessment and findings in the medical record Had long discussion with patient and his . Admitted to excessive alcohol abuse--atleast 4 hard liquor drinks per day or more for > 10 years known hx of elevated LFTs AST> ALT consistent with alcoholic liver diseas Low haptoglobin likely due to poor liver functions d/w rn o/n events reviewed Jocelyn Knowles Mar 01, 2017 14:11 Rich Heredia MD Mar 02, 2017 01:08
[2017-03-01 14:22] LABS: TOTAL BILIRUBIN ADULT 1.9 MG/DL (0.2-1.0)
[2017-03-01] MEDS: TAMSULOSIN HCL 0.4 MG CAP PO SCH (20:25)
[2017-03-01] MEDS: SENNOSIDES 8.6 MG TAB PO SCH (20:25)
[2017-03-01] MEDS: ATORVASTATIN 40 MG TAB PO SCH (20:26)
[2017-03-02] VITALS (26 sets, daily range): BP systolic 118–144; BP diastolic 60–78; PULSE 66–80; RESP 18; TEMP 97.7–98.2; O2SAT 91–97
[2017-03-02] MEDS: HEPARIN-D5W 25,000 U/250 ML 250 ML IV PRN (03:42)
[2017-03-02 04:58] LABS: AUTOMATED NEUTROPHIL # 3.7 TH/MM3 (1.8-7.7); BASOPHIL % 0.2 % (0.0-2.0); EOSINOPHIL # 0.1 TH/MM3 (0-0.4); EOSINOPHIL % 1.3 % (0.0-4.0); HEMATOCRIT 24.7 % (39.0-51.0); LYMPH % 15.8 % (9.0-44.0); LYMPHOCYTE # 0.9 TH/MM3 (1.0-4.8); MEAN CELL VOLUME 98.4 FL (80.0-100.0); MEAN CORPUSCULAR HEMOGLOBIN 34.7 PG (27.0-34.0); MEAN CORPUSCULAR HGB CONC 35.3 % (32.0-36.0); NEUT % 64.7 % (16.0-70.0); PLATELET COUNT 80 TH/MM3 (150-450); RED BLOOD COUNT 2.51 MIL/MM3 (4.50-5.90); RED CELL DISTRIBUTION WIDTH 16.2 % (11.6-17.2); WHITE BLOOD COUNT 5.7 TH/MM3 (4.0-11.0)
[2017-03-02 05:03] LABS: HEMO FLAGS AUTO DIFF
[2017-03-02 05:07] LABS: APTT (PATIENT) 58.9 SEC (24.3-30.1)
[2017-03-02] MEDS: PANTOPRAZOLE SOD 40 MG DELAYED RELEASE TAB PO SCH (05:57)
[2017-03-02 07:05] LABS: PLATELET ESTIMATE SMEAR LOW (NORMAL); PLATELET MORPHOLOGY NORMAL (NORMAL); SCAN/DIFF AUTO DIFF CONFIRMED
[2017-03-02] MEDS: AMIODARONE 200 MG TAB PO SCH (08:01)
[2017-03-02] MEDS: METOPROLOL TARTRATE 25 MG TAB PO SCH (08:01)
[2017-03-02] MEDS: ASPIRIN 81 MG CHEW TAB PO SCH (08:02)
[2017-03-02] MEDS: SODIUM CHLORIDE 0.9% FLUSH 10 ML FLUSH IV FLUSH SCH (08:02)
[2017-03-02] MEDS: POLYETHYLENE GLYCOL 17 GM PKG PO SCH (08:02)
[2017-03-02] MEDS: MULTIVITAMINS/MINERALS THERAPEUTIC TAB PO SCH (08:02)
[2017-03-02] MEDS: MAGNESIUM HYDROXIDE SUSP 30 ML CUP PO SCH (08:02)
[2017-03-02] MEDS: DOCUSATE SODIUM 100 MG CAP PO SCH (08:02)
--- NOTE | 2017-03-02 10:24 | PD.ONC.PN ---
Subjective Subjective Remarks Afebrile overnight. Patient resting in chair next to bed. Really wants to go home today. No bleeding. Objective Data Date Time Temp Pulse Resp B/P (MAP) Pulse Ox O2 Delivery O2 Flow Rate FiO2 03/02/17 10:00 80 03/02/17 09:00 66 03/02/17 08:00 68 03/02/17 07:49 97.7 78 18 144/72 (96) 97 03/02/17 07:38 95 Room Air 03/02/17 07:00 74 03/02/17 06:07 76 03/02/17 05:00 75 03/02/17 04:00 72 03/02/17 04:00 97.7 72 18 124/70 (88) 97 03/02/17 03:06 94 Nasal Cannula 2.00 03/02/17 03:00 72 03/02/17 02:00 77 03/02/17 01:00 77 03/02/17 00:30 91 Room Air 03/02/17 00:00 98.0 76 18 118/64 (82) 91 03/02/17 00:00 76 03/01/17 23:00 72 03/01/17 22:00 74 03/01/17 21:00 99 03/01/17 20:08 95 21 03/01/17 20:00 108 03/01/17 20:00 97.8 87 18 130/62 (84) 94 03/01/17 19:00 87 03/01/17 18:00 88 03/01/17 17:00 89 03/01/17 16:00 92 03/01/17 15:47 97.7 99 18 112/68 (83) 95 03/01/17 15:00 99 03/01/17 14:00 98 03/01/17 13:00 94 03/01/17 12:00 90 03/01/17 11:46 97.6 90 18 96/63 (74) 96 03/01/17 11:00 101 03/02/17 03/02/17 03/02/17 07:00 15:00 23:00 Intake Total 384 ml Output Total 300 ml Balance 84 ml Result Diagram: 03/02/17 0446 02/28/17 0630 Laboratory Results Laboratory Tests Test 03/01/17 13:41 03/02/17 04:46 Activated Partial Thromboplast Time 55.0 SEC 58.9 SEC Total Bilirubin 1.9 MG/DL Direct Bilirubin 0.9 MG/DL Indirect Bilirubin 1.0 MG/DL Aspartate Amino Transf (AST/SGOT) 141 U/L Alanine Aminotransferase (ALT/SGPT) 65 U/L Alkaline Phosphatase 73 U/L Total Protein 6.2 GM/DL Albumin 2.4 GM/DL White Blood Count 5.7 TH/MM3 Red Blood Count 2.51 MIL/MM3 Hemoglobin 8.7 GM/DL Hematocrit 24.7 % Mean Corpuscular Volume 98.4 FL Mean Corpuscular Hemoglobin 34.7 PG Mean Corpuscular Hemoglobin Concent 35.3 % Red Cell Distribution Width 16.2 % Platelet Count 80 TH/MM3 Mean Platelet Volume 7.3 FL Neutrophils (%) (Auto) 64.7 % Lymphocytes (%) (Auto) 15.8 % Monocytes (%) (Auto) 18.0 % Eosinophils (%) (Auto) 1.3 % Basophils (%) (Auto) 0.2 % Neutrophils # (Auto) 3.7 TH/MM3 Lymphocytes # (Auto) 0.9 TH/MM3 Monocytes # (Auto) 1.0 TH/MM3 Eosinophils # (Auto) 0.1 TH/MM3 Basophils # (Auto) 0.0 TH/MM3 CBC Comment AUTO DIFF Differential Comment AUTO DIFF CONFIRMED Platelet Estimate LOW Platelet Morphology Comment NORMAL Haptoglobin LESS THAN 8 MG/DL Lactate Dehydrogenase 486 U/L Administered Medications Medications (Trade) Dose Ordered Sig/Marie Route PRN Reason Start Time Stop Time Status Last Admin Dose Admin Sodium Chloride (NS Flush) 2 ml BID IV FLUSH 02/23/17 21:00 03/02/17 08:02 Aspirin (Aspirin Chew) 81 mg DAILY PO 02/24/17 09:00 03/02/17 08:02 Pantoprazole Sodium (Protonix) 40 mg DAILY@06 PO 02/24/17 06:00 03/02/17 05:57 Acetaminophen/ Hydrocodone Bitart ([place] 5-325 Mg) 1 tab Q3H PRN PO PAIN 1-5 WHEN TOLERATING PO 02/23/17 13:30 02/24/17 04:09 Docusate Sodium (Colace) 100 mg BID PO 02/24/17 21:00 03/01/17 20:26 Multivitamins/ Minerals Therapeutic (Theragran M Tab) 1 tab DAILY PO 02/25/17 09:00 03/02/17 08:02 Magnesium Hydroxide (Milk Of Magnjuhi Liq) 30 ml DAILY PO 02/25/17 09:00 02/26/17 10:38 Polyethylene Glycol (Miralax) 17 gm DAILY PO 02/25/17 09:00 02/26/17 10:38 Sennosides (Senokot) 8.6 mg HS PO 02/24/17 21:00 03/01/17 20:25 Diphenhydramine HCl (Benadryl) 50 mg HS PRN PO SLEEP 02/24/17 10:15 03/01/17 21:54 Tamsulosin HCl (Flomax) 0.4 mg HS PO 02/24/17 21:00 03/01/17 20:25 Metoprolol Tartrate (Lopressor) 25 mg BID PO 02/26/17 09:00 03/02/17 08:01 Atorvastatin Calcium (Lipitor) 40 mg HS PO 02/26/17 21:00 03/01/17 20:26 Heparin Sodium/ Dextrose 250 ml @ 18 mls/hr TITRATE PRN IV Coagulation Management 02/28/17 14:00 03/02/17 03:42 Amiodarone HCl (Cordarone) 200 mg Q12HR PO 03/01/17 21:00 03/02/17 08:01 Objective Remarks GENERAL: Elderly male sitting up in chair next to bed in [facility]. SKIN: Warm and dry. HEAD: Normocephalic. EYES: No injection or drainage. NECK: Supple, trachea midline. CARDIOVASCULAR: +S1/S2 RESPIRATORY: clear to auscultation bilaterally. GASTROINTESTINAL: Abdomen soft, non-tender, nondistended. EXTREMITIES: No cyanosis NEUROLOGICAL: awake and alert, normal speech. moving extremities. Assessment/Plan Problem List: (1) Thrombocytopenia ICD Codes: D69.6 - Thrombocytopenia, unspecified Status: Chronic Plan: --patient reporting h/o alcohol abuse. thrombocytopenia/low haptoglobin likely d/t underlying liver d/o rather than TTP or hemolysis. on admission had thrombocytopenia with a platelet count of 113,000, his platelet count has dropped to 65,000. --patient reports platelet count baseline is in the 80,000 range. --no known history of splenomegaly. --has never had a bone marrow biopsy. --has a history of lupus and his thrombocytopenia goes along with lupus. Patients with lupus can develop thrombocytopenia. Could also be due to Plaquenil. --Plaquenil on hold--last dose given 02/27 --does not appear to be heparin-induced thrombocytopenia and based on the HIT score, probability of heparin-induced thrombocytopenia is low. --peripheral smear pending --continue aspirin as long as his platelet count is greater that 50,000. (2) Macrocytic anemia ICD Codes: D53.9 - Nutritional anemia, unspecified Status: Chronic Plan: --appears to be post op. --haptoglobin low likely d/t synthetic liver dysfunction rather than hemolysis. --direct Moody test negative. -- B12 elevated --serum iron and % saturation are low, but ferritin is elevated, more consistent with anemia of chronic disease or a mixed picture. (3) Afib ICD Codes: I48.91 - Unspecified atrial fibrillation Status: Acute Plan: --on heparin gtt Assessment 77y/o male, admitted for AV replacement and now status post aortic valve replacement and CABG x2. Hematology consulted for thrombocytopenia. history of hypertension, hyperlipidemia, history of lupus (currently on Plaquenil) and aortic stenosis, BPH Plan 1. clear for discharge. will give 1 unit pRBC prior to discharge 2. face sheet faxed to new patient referrals for follow up in mid-March with Dr. Heredia. CTS will set up weekly CBC starting this coming Sunday until follow up with Dr. Heredia. 3. ok to d/c home on [facility]. Attending Statement The exam, history, and the medical decision-making described in the above note were completed with the assistance of the mid-level provider. I reviewed and agree with the findings presented. I attest that I had a [id number] encounter with the patient on the same day, and personally performed and documented my assessment and findings in the medical record. Jocelyn Knwoles Mar 02, 2017 10:24 Rich Heredia MD Mar 05, 2017 21:00
[2017-03-02] MEDS ORDERED: FUROSEMIDE 20 MG/2 ML VIAL IV PUSH ONE (10:30)
[2017-03-02] MEDS ORDERED: diphenhydrAMINE HCL 25 MG CAP PO PRN (10:30)
[2017-03-02] MEDS ORDERED: SODIUM CHLOR 0.9% 250 ML INJ 250 ML IV ONE (10:30)
[2017-03-02] MEDS ORDERED: ACETAMINOPHEN 325 MG TAB PO PRN (10:30)
[2017-03-02] MEDS ORDERED: METO25TA3 PO (13:58)
[2017-03-02] MEDS ORDERED: HYDR-3516 PO (13:58)
[2017-03-02] MEDS ORDERED: AMIO200T PO (13:58)
[2017-03-02] MEDS ORDERED: DOCU1CAP39 PO (13:58)
[2017-03-02] MEDS ORDERED: APIX5TAB PO (13:58)
--- NOTE | 2017-03-02 14:10 | HHI.DS ---
Discharge Summary Admission Date Feb 23, 2017 at 05:10 Discharge Date: Mar 02, 2017 Admitting Diagnosis 1. Severe Two Vessel Coronary Artery Disease. 2. Critical Aortic Valve Stenosis 3. Thrombocytopenia (1) Coronary artery disease Diagnosis: Principal ICD Codes: I25.10 - Atherosclerotic heart disease of [place] coronary artery without angina pectoris (2) Lupus ICD Codes: L93.0 - Discoid lupus erythematosus Status: Chronic (3) Severe aortic stenosis ICD Codes: I35.0 - Nonrheumatic aortic (valve) stenosis Status: Chronic (4) Afib ICD Codes: I48.91 - Unspecified atrial fibrillation Status: Acute (5) Macrocytic anemia ICD Codes: D53.9 - Nutritional anemia, unspecified Status: Chronic (6) Thrombocytopenia ICD Codes: D69.6 - Thrombocytopenia, unspecified Status: Chronic (7) S/P AVR (aortic valve replacement) Diagnosis: Secondary ICD Codes: Z95.2 - Presence of prosthetic heart valve (8) S/P CABG x 2 Diagnosis: Secondary ICD Codes: Z95.1 - Presence of aortocoronary bypass graft Procedures 1. Coronary Artery Bypass Grafting x 2 with left internal mammary artery (NAVARRETE) to left anterior descending (LAD), reverse saphenous vein graft to the distal Right Coronary Artery (RCA) 02/23 2. Aortic Valve Replacement with 23mm Medtronic Mosaic Tissue Valve 3. Right Leg Endoscopic Vein Steward Brief History 77-year-old male, patient of Dr. Pineda, also Dr. Le, Dr. Morris Alexandre who has been having some shortness of breath and fatigue for the last 4- 5 months, has a history of aortic stenosis and has been followed on a regular basis by Dr. Pineda. He had a recent echocardiogram on January 09 which showed an ejection fraction of 60%, some grade 1 diastolic dysfunction. The left atrium was mildly dilated. The peak gradient for the aortic valve is 87 mmHg, mean gradient of 53, the valve consistent with severe aortic stenosis, mitral valve had some mild regurgitation and some mild tricuspid regurgitation. Right ventricular systolic pressures of 49 and also underwent heart catheterization 02/13/17 which showed 100% mid distal LAD and the RCA was 70% stenosed. He did right-sided heart cath which showed RA pressures of 8, PA pressure 28/14, wedge pressure 17. Cardiac output of 8, with an index of 3.7. Pt was electively admitted for surgery PAST MEDICAL HISTORY: Aortic stenosis, History of colon polyps, History of lupus and low platelets, Essential hypertension, Thrombocytopenia, Psoriasis, Psoriatic arthritis CBC/BMP: 03/02/17 0446 02/28/17 0630 Significant Findings Laboratory Tests Test 02/28/17 06:30 02/28/17 13:47 02/28/17 21:28 02/28/17 23:49 Red Blood Count 2.44 MIL/MM3 (4.50-5.90) Hemoglobin 8.5 GM/DL (13.0-17.0) Hematocrit 23.9 % (39.0-51.0) Mean Corpuscular Hemoglobin 35.0 PG (27.0-34.0) Platelet Count 68 TH/MM3 (150-450) Haptoglobin 12 MG/DL (30-200) Prothrombin Time 12.5 SEC (9.8-11.6) 12.0 SEC (9.8-11.6) Blood Urea Nitrogen 32 MG/DL (7-18) Random Glucose 119 MG/DL (74-106) Calcium Level 7.5 MG/DL (8.5-10.1) Sodium Level 134 MEQ/L (136-145) Estimat Glomerular Filtration Rate 65 ML/MIN (>89) Iron Level 29 MCG/DL (65-175) Total Iron Binding Capacity 200 MCG/DL (250-450) Percent Iron Saturation 14.5 % (20-50) Ferritin 774 NG/ML (26-388) Total Bilirubin 1.6 MG/DL (0.2-1.0) Direct Bilirubin 0.7 MG/DL (0.0-0.2) Indirect Bilirubin 0.9 MG/DL (0.0-0.8) Aspartate Amino Transf (AST/SGOT) 174 U/L (15-37) Lactate Dehydrogenase 491 U/L (87-241) Total Protein 5.5 GM/DL (6.4-8.2) Albumin 2.2 GM/DL (3.4-5.0) Vitamin B12 Level 1357 PG/ML (193-986) Activated Partial Thromboplast Time 102.7 SEC (24.3-30.1) 53.7 SEC (24.3-30.1) Test 03/01/17 03:45 03/01/17 03:48 03/01/17 07:23 03/01/17 13:41 Red Blood Count 2.68 MIL/MM3 (4.50-5.90) Hemoglobin 9.3 GM/DL (13.0-17.0) Hematocrit 26.6 % (39.0-51.0) Mean Corpuscular Hemoglobin 34.9 PG (27.0-34.0) Platelet Count 72 TH/MM3 (150-450) Monocytes (%) (Auto) 18.0 % (0.0-8.0) Lymphocytes # (Auto) 0.9 TH/MM3 (1.0-4.8) Monocytes # (Auto) 1.0 TH/MM3 (0-0.9) Platelet Estimate LOW (NORMAL) Polychromasia 2.4 % (0.0-1.9) Haptoglobin 12 MG/DL (30-200) Prothrombin Time 12.6 SEC (9.8-11.6) Activated Partial Thromboplast Time 93.1 SEC (24.3-30.1) 49.5 SEC (24.3-30.1) 55.0 SEC (24.3-30.1) Lactate Dehydrogenase 506 U/L (87-241) Total Bilirubin 1.9 MG/DL (0.2-1.0) Direct Bilirubin 0.9 MG/DL (0.0-0.2) Indirect Bilirubin 1.0 MG/DL (0.0-0.8) Aspartate Amino Transf (AST/SGOT) 141 U/L (15-37) Total Protein 6.2 GM/DL (6.4-8.2) Albumin 2.4 GM/DL (3.4-5.0) Test 03/02/17 04:46 Red Blood Count 2.51 MIL/MM3 (4.50-5.90) Hemoglobin 8.7 GM/DL (13.0-17.0) Hematocrit 24.7 % (39.0-51.0) Mean Corpuscular Hemoglobin 34.7 PG (27.0-34.0) Platelet Count 80 TH/MM3 (150-450) Monocytes (%) (Auto) 18.0 % (0.0-8.0) Lymphocytes # (Auto) 0.9 TH/MM3 (1.0-4.8) Monocytes # (Auto) 1.0 TH/MM3 (0-0.9) Platelet Estimate LOW (NORMAL) Haptoglobin LESS THAN 8 MG/DL (30-200) Activated Partial Thromboplast Time 58.9 SEC (24.3-30.1) Lactate Dehydrogenase 486 U/L (87-241) Hospital Course surgery 02/23 Procedure: 1. Coronary Artery Bypass Grafting x 2 with left internal mammary artery (NAVARRETE) to left anterior descending (LAD), reverse saphenous vein graft to the distal Right Coronary Artery (RCA) 2. Aortic Valve Replacement with 23mm Medtronic Mosaic Tissue Valve 3. Right Leg Endoscopic Vein Steward 4. Intraoperative Vein Mapping. 02/24 Doing well. Extubated ans tolerating Off of all gtts Transfer to CPCU Maintain CT Incentive spirometer 02/25 Hypotensive last pm. Clinically stable this morning Awaiting CPCU bed Maintain CT for another day 02/26 pt went into afib RVR last pm, start on amiodarone IV protocol mario v score 4 however pt has hx of chronic thrombocytopenia / PLT count has improved to 85 will need to discuss form of anticoagulation chest tube removed without difficulty on nasal cannula 02/27 pt remains in afib rate 110-115 additional IV amiodarone bolus given ./ discussed with Dr Pineda recommends consult with hematology / PLT 65 and chronic hx of thrombocytopenia continue ASA for now, await Heme recommendation on low dose BB DC CVC line later today will need HHC and PT at discharge 02/28 remains in afib rate improved appreciate input from hematolgy ok for ASA plt > 50K start heparin gtt , monitor HGB and platelets / if stable then will start po eliquis on dc f/u CBC closely as outpt discussed with pt with Dr Siegel 03/01 discussed with Heme PA / will keep pt here until tomorrow, if PLT stable then ok to stop Heparin gtt and stop start eliquis 03/02 PLT 80K will need to hold statin 2/2 elevated for one unit PRBC today prior to dc discussed with pt , will dc later today with weekly CBC starting Sunday results to Dr Heredia and Dr Encarnacion Pt Condition on Discharge: Good Discharge Disposition: Disch w/ Home Health Serv Discharge Instructions DIET: Follow Instructions for: Heart Healthy Diet Activities you can perform: Full Weight Bearing, Shower Only-No Bath Activities to avoid: Strenuous Activity, Driving Additional Activity Instructio: no lifting > 8 lbs or gallon of milk Follow up Referrals: Cardiology - 4 Weeks @ [facility] with Truman Pineda MD Oncology/Hematology - 4 Weeks with Rich Heredia MD PCP Follow-up - 2 Weeks with Morris Alexandre Md Surgical - 2 Weeks with Brittany Mo New Orders: CBC WITH DIFF - 3-5 Days CBC WITH DIFF - 03/14/17 CBC WITH DIFF - 03/21/17 CBC WITH DIFF - 03/28/17 CBC WITH DIFF - 04/04/17 New Medications: Apixaban (Eliquis) 5 Mg Tab 5 MG PO BID for Blood Clot Prevention, #60 TAB 2 Refills Walker with Front Wheels (Walker with Front Wheels) 1 Mis Mis EA .ROUTE DIRECTED, #1 0 Refills Amiodarone (Amiodarone) 200 Mg Tab 200 MG PO Q12HR for heart rhythm, #40 TAB 0 Refills 200mg bid x 3 days , then 200mg daily , hold SBP<100 Docusate Sodium (Dok) 100 Mg Cap 100 MG PO BID for Constipation, #60 CAP 0 Refills Hydrocodone/Acetaminophen (Hydrocodone-Acetamin 5-325 mg) 5 Mg-325 Mg Tablet 1 TAB PO Q4HR PRN for PAIN 1-5 WHEN TOLERATING PO, #40 TAB 0 Refills Metoprolol Tartrate (Metoprolol Tartrate) 25 Mg Tab 25 MG PO BID for heart rate, #60 TAB 2 Refills hold SBP<100 HR<60 Continued Medications: Aspirin DR (Aspirin EC) 81 Mg Tabdr 81 MG PO DAILY, TAB 0 Refills Ketoconazole Topical Shampoo (Nizoral Topical Shampoo) 2% Sham 1 APPLIC TOPICAL 2XWEEK for Fungal Infection, BOTTLE 0 Refills Apply to scalp Multiple Vitamin (Multi-Vitamin Daily) 1 Tab Tab 1 TAB PO DAILY for Nutritional Supplement, TAB 0 Refills Omeprazole (Omeprazole) 20 Mg Tab 20 MG PO DAILY, #30 TAB 0 Refills Tamsulosin (Tamsulosin) 0.4 Mg Cap 0.4 MG PO HS for Manage Prostate Problems, #30 CAP 0 Refills Discontinued Medications: Benazepril (Benazepril) 5 Mg Tab 5 MG PO DAILY for Blood Pressure Management, #30 TAB 0 Refills Hydroxychloroquine (Hydroxychloroquine) 200 Mg Tab 200 MG PO DAILY, #30 TAB 0 Refills Takw with food Brittany Mo Mar 02, 2017 14:10
--- NOTE | 2017-03-02 14:20 | HHI.DS ---
Discharge Summary Admission Date Feb 23, 2017 at 05:10 Admitting Diagnosis (1) Coronary artery disease Diagnosis: Principal ICD Codes: I25.10 - Atherosclerotic heart disease of [place] coronary artery without angina pectoris (2) Lupus ICD Codes: L93.0 - Discoid lupus erythematosus Status: Chronic (3) Severe aortic stenosis ICD Codes: I35.0 - Nonrheumatic aortic (valve) stenosis Status: Chronic (4) Afib ICD Codes: I48.91 - Unspecified atrial fibrillation Status: Acute (5) Macrocytic anemia ICD Codes: D53.9 - Nutritional anemia, unspecified Status: Chronic (6) Thrombocytopenia ICD Codes: D69.6 - Thrombocytopenia, unspecified Status: Chronic (7) S/P AVR (aortic valve replacement) Diagnosis: Secondary ICD Codes: Z95.2 - Presence of prosthetic heart valve (8) S/P CABG x 2 Diagnosis: Secondary ICD Codes: Z95.1 - Presence of aortocoronary bypass graft Procedures 1. Coronary Artery Bypass Grafting x 2 with left internal mammary artery (NAVARRETE) to left anterior descending (LAD), reverse saphenous vein graft to the distal Right Coronary Artery (RCA) 02/23 2. Aortic Valve Replacement with 23mm Medtronic Mosaic Tissue Valve 3. Right Leg Endoscopic Vein Grand Chain Brief History 77-year-old male, patient of Dr. Pineda, also Dr. Le, Dr. Morris Alexander who has been having some shortness of breath and fatigue for the last 4- 5 months, has a history of aortic stenosis and has been followed on a regular basis by Dr. Pineda. He had a recent echocardiogram on January 09 which showed an ejection fraction of 60%, some grade 1 diastolic dysfunction. The left atrium was mildly dilated. The peak gradient for the aortic valve is 87 mmHg, mean gradient of 53, the valve consistent with severe aortic stenosis, mitral valve had some mild regurgitation and some mild tricuspid regurgitation. Right ventricular systolic pressures of 49 and also underwent heart catheterization 02/13/17 which showed 100% mid distal LAD and the RCA was 70% stenosed. He did right-sided heart cath which showed RA pressures of 8, PA pressure 28/14, wedge pressure 17. Cardiac output of 8, with an index of 3.7. Pt was electively admitted for surgery PAST MEDICAL HISTORY: Aortic stenosis, History of colon polyps, History of lupus and low platelets, Essential hypertension, Thrombocytopenia, Psoriasis, Psoriatic arthritis CBC/BMP: 03/02/17 0446 02/28/17 0630 Significant Findings Laboratory Tests Test 02/28/17 06:30 02/28/17 13:47 02/28/17 21:28 02/28/17 23:49 Red Blood Count 2.44 MIL/MM3 (4.50-5.90) Hemoglobin 8.5 GM/DL (13.0-17.0) Hematocrit 23.9 % (39.0-51.0) Mean Corpuscular Hemoglobin 35.0 PG (27.0-34.0) Platelet Count 68 TH/MM3 (150-450) Haptoglobin 12 MG/DL (30-200) Prothrombin Time 12.5 SEC (9.8-11.6) 12.0 SEC (9.8-11.6) Blood Urea Nitrogen 32 MG/DL (7-18) Random Glucose 119 MG/DL (74-106) Calcium Level 7.5 MG/DL (8.5-10.1) Sodium Level 134 MEQ/L (136-145) Estimat Glomerular Filtration Rate 65 ML/MIN (>89) Iron Level 29 MCG/DL (65-175) Total Iron Binding Capacity 200 MCG/DL (250-450) Percent Iron Saturation 14.5 % (20-50) Ferritin 774 NG/ML (26-388) Total Bilirubin 1.6 MG/DL (0.2-1.0) Direct Bilirubin 0.7 MG/DL (0.0-0.2) Indirect Bilirubin 0.9 MG/DL (0.0-0.8) Aspartate Amino Transf (AST/SGOT) 174 U/L (15-37) Lactate Dehydrogenase 491 U/L (87-241) Total Protein 5.5 GM/DL (6.4-8.2) Albumin 2.2 GM/DL (3.4-5.0) Vitamin B12 Level 1357 PG/ML (193-986) Activated Partial Thromboplast Time 102.7 SEC (24.3-30.1) 53.7 SEC (24.3-30.1) Test 03/01/17 03:45 03/01/17 03:48 03/01/17 07:23 03/01/17 13:41 Red Blood Count 2.68 MIL/MM3 (4.50-5.90) Hemoglobin 9.3 GM/DL (13.0-17.0) Hematocrit 26.6 % (39.0-51.0) Mean Corpuscular Hemoglobin 34.9 PG (27.0-34.0) Platelet Count 72 TH/MM3 (150-450) Monocytes (%) (Auto) 18.0 % (0.0-8.0) Lymphocytes # (Auto) 0.9 TH/MM3 (1.0-4.8) Monocytes # (Auto) 1.0 TH/MM3 (0-0.9) Platelet Estimate LOW (NORMAL) Polychromasia 2.4 % (0.0-1.9) Haptoglobin 12 MG/DL (30-200) Prothrombin Time 12.6 SEC (9.8-11.6) Activated Partial Thromboplast Time 93.1 SEC (24.3-30.1) 49.5 SEC (24.3-30.1) 55.0 SEC (24.3-30.1) Lactate Dehydrogenase 506 U/L (87-241) Total Bilirubin 1.9 MG/DL (0.2-1.0) Direct Bilirubin 0.9 MG/DL (0.0-0.2) Indirect Bilirubin 1.0 MG/DL (0.0-0.8) Aspartate Amino Transf (AST/SGOT) 141 U/L (15-37) Total Protein 6.2 GM/DL (6.4-8.2) Albumin 2.4 GM/DL (3.4-5.0) Test 03/02/17 04:46 Red Blood Count 2.51 MIL/MM3 (4.50-5.90) Hemoglobin 8.7 GM/DL (13.0-17.0) Hematocrit 24.7 % (39.0-51.0) Mean Corpuscular Hemoglobin 34.7 PG (27.0-34.0) Platelet Count 80 TH/MM3 (150-450) Monocytes (%) (Auto) 18.0 % (0.0-8.0) Lymphocytes # (Auto) 0.9 TH/MM3 (1.0-4.8) Monocytes # (Auto) 1.0 TH/MM3 (0-0.9) Platelet Estimate LOW (NORMAL) Haptoglobin LESS THAN 8 MG/DL (30-200) Activated Partial Thromboplast Time 58.9 SEC (24.3-30.1) Lactate Dehydrogenase 486 U/L (87-241) Pt Condition on Discharge: Good Discharge Disposition: Disch w/ Home Health Serv Discharge Instructions DIET: Follow Instructions for: Heart Healthy Diet Activities you can perform: Full Weight Bearing, Shower Only-No Bath Activities to avoid: Strenuous Activity, Driving Additional Activity Instructio: no lifting > 8 lbs or gallon of milk Follow up Referrals: Cardiology - 4 Weeks @ [facility] with Truman Pineda MD Oncology/Hematology - 4 Weeks with Rich Heredia MD PCP Follow-up - 2 Weeks with Morris Alexandre Md Surgical - 2 Weeks with Brittany Mo New Orders: CBC WITH DIFF - 3-5 Days CBC WITH DIFF - 03/14/17 CBC WITH DIFF - 03/21/17 CBC WITH DIFF - 03/28/17 CBC WITH DIFF - 04/04/17 New Medications: Apixaban (Eliquis) 5 Mg Tab 5 MG PO BID for Blood Clot Prevention, #60 TAB 2 Refills Walker with Front Wheels (Walker with Front Wheels) 1 Mis Mis EA .ROUTE DIRECTED, #1 0 Refills Amiodarone (Amiodarone) 200 Mg Tab 200 MG PO Q12HR for heart rhythm, #40 TAB 0 Refills 200mg bid x 3 days , then 200mg daily , hold SBP<100 Docusate Sodium (Dok) 100 Mg Cap 100 MG PO BID for Constipation, #60 CAP 0 Refills Hydrocodone/Acetaminophen (Hydrocodone-Acetamin 5-325 mg) 5 Mg-325 Mg Tablet 1 TAB PO Q4HR PRN for PAIN 1-5 WHEN TOLERATING PO, #40 TAB 0 Refills Metoprolol Tartrate (Metoprolol Tartrate) 25 Mg Tab 25 MG PO BID for heart rate, #60 TAB 2 Refills hold SBP<100 HR<60 Continued Medications: Aspirin DR (Aspirin EC) 81 Mg Tabdr 81 MG PO DAILY, TAB 0 Refills Ketoconazole Topical Shampoo (Nizoral Topical Shampoo) 2% Sham 1 APPLIC TOPICAL 2XWEEK for Fungal Infection, BOTTLE 0 Refills Apply to scalp Multiple Vitamin (Multi-Vitamin Daily) 1 Tab Tab 1 TAB PO DAILY for Nutritional Supplement, TAB 0 Refills Omeprazole (Omeprazole) 20 Mg Tab 20 MG PO DAILY, #30 TAB 0 Refills Tamsulosin (Tamsulosin) 0.4 Mg Cap 0.4 MG PO HS for Manage Prostate Problems, #30 CAP 0 Refills Discontinued Medications: Benazepril (Benazepril) 5 Mg Tab 5 MG PO DAILY for Blood Pressure Management, #30 TAB 0 Refills Hydroxychloroquine (Hydroxychloroquine) 200 Mg Tab 200 MG PO DAILY, #30 TAB 0 Refills Takw with food Brittany Mo Mar 02, 2017 14:20
[2017-03-04 19:53] LABS: VWF CLEAVING PROT ACT 60 (68-163); VWF PROTEASE INH ND BEU (<0.4)
== END 2017-03-02 18:11 | disposition home health service (06) | DRG 221 ==
LOC: HSDI 05:10 → HCVI 13:58 → HCPC 02-25 13:59
PROVIDERS: ADMIT Thoracic Surgery (Cardiothoracic Vascular Surgery); ATTEND Thoracic Surgery (Cardiothoracic Vascular Surgery)
PROC: 02100Z9 Bypass Coronary Artery, One Artery from Left Internal Mammary, Open Approach (ICD-10-PCS; 2017-02-23)
PROC: 06BP4ZZ Excision of Right Saphenous Vein, Percutaneous Endoscopic Approach (ICD-10-PCS; 2017-02-23)
PROC: 5A1221Z Performance of Cardiac Output, Continuous (ICD-10-PCS; 2017-02-23)
PROC: B246ZZ4 Ultrasonography of Right and Left Heart, Transesophageal (ICD-10-PCS; 2017-02-23)
PROC: 5A1935Z Respiratory Ventilation, Less than 24 Consecutive Hours (ICD-10-PCS; 2017-02-23)
PROC: 6A550Z2 Pheresis of Platelets, Single (ICD-10-PCS; 2017-02-23)
PROC: 0D9670Z Drainage of Stomach with Drainage Device, Via Natural or Artificial Opening (ICD-10-PCS; 2017-02-23)
PROC: 30233N1 Transfusion of Nonautologous Red Blood Cells into Peripheral Vein, Percutaneous Approach (ICD-10-PCS; 2017-02-23)
PROC: 02RF08Z Replacement of Aortic Valve with Zooplastic Tissue, Open Approach (ICD-10-PCS; principal; 2017-02-23 07:06)
PROC: 021009W Bypass Coronary Artery, One Artery from Aorta with Autologous Venous Tissue, Open Approach (ICD-10-PCS; 2017-02-23 07:06)
DX: I08.3 Combined rheumatic disorders of mitral, aortic and tricuspid valves (principal); I25.10 Atherosclerotic heart disease of native coronary artery without angina pectoris; I95.9 Hypotension, unspecified; I48.91 Unspecified atrial fibrillation; D69.59 Other secondary thrombocytopenia; L93.0 Discoid lupus erythematosus; D53.9 Nutritional anemia, unspecified; L40.50 Arthropathic psoriasis, unspecified; D63.8 Anemia in other chronic diseases classified elsewhere; I10 Essential (primary) hypertension; E78.5 Hyperlipidemia, unspecified; N40.0 Benign prostatic hyperplasia without lower urinary tract symptoms; E66.9 Obesity, unspecified; K76.9 Liver disease, unspecified; Z86.010 Personal history of colon polyps; Z87.891 Personal history of nicotine dependence
CPT/HCPCS: 36430; 36600; 71010; 76700; 76937; 80048; 80076; 82607; 82728; 82747; 82805; 82948; 83010; 83540; 83550; 83615; 83735; 85025; 85027; 85060; 85384; 85397; 85610; 85730; 86705; 86803; 86850; 86880; 86900; 86901; 86920; 87015; 87070; 87102; 87116; 87205; 87206; 87340; 88305; 88311; 93005; 93318; 94002; 94150; 94640; 94664; 94667; 94668; C1768; J0131; J0171; J0282; J0690; J1250; J1644; J1815; J1817; J1940; J2150; J2370; J2440; J2765; J3370; J3475; J3480; J7050; J7060; J7120; P9016; P9035; P9045; P9047; Q0163